=== PATIENT | female | born 1940 | race Caucasian/White ===

== ENCOUNTER 2020-08-15 07:34 | Outpatient (REF) | payer MEDICARE, SELFPAY ==
[2020-08-15 11:42] LABS: Alanine Aminotransferase 13 U/L (0-31); Albumin Level 4.3 g/dL (3.5-5.0); Alkaline Phosphatase 69 U/L (39-117); Anion Gap 12 (12-20); Aspartate Amino Transferase 17 U/L (5-31); Bilirubin Total 0.7 mg/dL (0.0-1.0); Blood Urea Nitrogen 18 mg/dL (9-16); Calcium 8.7 mg/dL (8.4-10.2); Carbon Dioxide 31 mmol/L (22-29); Chloride 104 mmol/L (96-108); Cholesterol 180 mg/dL; Estimated Glomerular Filt Rate > 60; Glucose Fasting 106 mg/dL (60-99); HDL Cholesterol 48 mg/dL; LDL Cholesterol Calculated 103 mg/dl; Potassium 4.5 mmol/l (3.3-5.1); Sodium 142 mmol/L (135-145); Total Protein 6.9 g/dL (6.5-8.0); Triglycerides 145 mg/dL
[2020-08-15 12:08] LABS: TSH reflex Free T4 1.26 mIU/mL (0.32-4.0)
== END 2020-08-15 07:35 | disposition home or self-care (01) ==
LOC: HO.HMGCLDS 07:34
PROVIDERS: PCP Nurse Practitioner Family; Visit Provider Nurse Practitioner Family
DX: Z78.0 Asymptomatic menopausal state (principal); I10 Essential (primary) hypertension
CPT/HCPCS: 80053; 80061; 84443

== ENCOUNTER 2020-08-27 12:46 | Outpatient (REF) | payer MEDICARE, SELFPAY ==
--- NOTE | 2020-08-27 12:49 | MM_ITS ---
EXAMINATION: BONE DENSITOMETRY CLINICAL INDICATION: Asymptomatic menopausal state. COMPARISON: None (current study represents initial baseline exam). TECHNIQUE: Using a [employer] DXA System (software version: 13.1) manufactured by [employer], dual-energy x-ray absorptiometry was performed of the lumbar spine and left hip. The images are of good technical quality. Summary results are attached. FINDINGS: AP SPINE L1-L4: BMD 1.434 g/cm2, Z-score 3.5, T-score 2.1, normal. LEFT FEMUR, NECK: BMD 0.753 g/cm2, Z-score -0.2, T-score -2.1, osteopenia. LEFT FEMUR, TOTAL: BMD 0.834 g/cm2, Z-score 0.3, T-score -1.4, osteopenia. IDENTIFIED RISK FACTORS: Menopause, left oophorectomy, hysterectomy. HISTORY OF FRACTURE: None listed. MEDICATIONS: None listed. MM/XR DEXA axial skeleton IMPRESSION: 1. DIAGNOSIS: Osteopenia based on the lowest T-score value of -2.1 in the femoral neck applying World Health Organization criteria. 2. 10-YEAR FRACTURE RISK PREDICTION, FRAX: Major osteoporotic fracture (clinical spine, forearm, hip or shoulder) 14.8%. Hip fracture 4.2%. 3. Treatment Recommendations: NOF guidelines recommend consideration for treatment in postmenopausal women and men age 50 and older presenting with the following: -A hip or vertebral (clinical or morphometric) fracture. -T-score less than or equal to -2.5 at the femoral neck or spine after appropriate evaluation to exclude secondary causes. -Low bone mass at the hip or spine and a 10-year fracture probability by FRAX of greater than or equal to 3% for hip fracture or greater than or equal to 20% for major osteoporotic fracture based on the [place] adapted WHO algorithm. 4. Other Recommendations: All treatment decisions require clinical judgment and consideration of individual patient factors, including patient preferences, comorbidities, previous drug use, risk factors not captured in the FRAX model (e.g. frailty, falls, vitamin D deficiency, increased bone turnover, interval significant decline in bone density) and possible under or overestimation of fracture risk by FRAX. Additional medical evaluation for secondary cause of low bone mineral density may be appropriate. FUTURE SCAN RECOMMENDATION: People with diagnosed cases of osteoporosis or at high risk for fracture should have regular bone mineral density tests. For patients eligible for Medicare, routine testing is allowed once every 2 years. The testing frequency can be increased to one year for patients who have rapidly progressing disease, those who are receiving or discontinuing medical therapy to restore bone mass, or have additional risk factors.
== END 2020-08-27 12:47 | disposition home or self-care (01) ==
LOC: HO.MAMMO 12:46
PROVIDERS: PCP Nurse Practitioner Family; Visit Provider Nurse Practitioner Family
DX: Z78.0 Asymptomatic menopausal state (principal); Z90.721 Acquired absence of ovaries, unilateral; Z90.710 Acquired absence of both cervix and uterus
CPT/HCPCS: 77080

== ENCOUNTER 2020-11-06 06:35 | Outpatient (REF) | payer MEDICARE, SELFPAY ==
[2020-11-06 11:42] LABS: Estimated Average Glucose 114 mg/dL; Hemoglobin A1c % 5.6 %
== END 2020-11-06 06:36 | disposition home or self-care (01) ==
LOC: HO.HMGCLDS 06:35
PROVIDERS: PCP Nurse Practitioner Family; Visit Provider Nurse Practitioner Family
DX: R73.01 Impaired fasting glucose (principal)
CPT/HCPCS: 36415; 83036

== ENCOUNTER 2021-07-04 15:21 | Outpatient (REF) | payer MEDICARE, SELFPAY ==
--- NOTE | ~2021-07-04 | MM_ITS ---
EXAMINATION: MM SCREENING DIGITAL BREAST TOMOSYNTHESIS, BILATERAL CLINICAL INFORMATION: Screening. Asymptomatic. The lifetime risk of breast cancer based on the Tyrer-Cuzick Model is under 2%. COMPARISON: Mammography: 06/01/2020, 05/23/2019, 05/13/2018 TECHNIQUE: Digital breast tomosynthesis is performed in both the craniocaudal and mediolateral oblique views along with computer-aided detection (CAD). Synthesized 2D images are generated from the tomosynthesis. FINDINGS: The breasts are heterogeneously dense, which may obscure small masses (ACR BI-RADS breast composition Category c). There are no significant masses, abnormal calcifications, or other abnormalities. Parenchymal pattern is similar to prior studies. No developing density. The axilla and skin contours are unremarkable. MM/MM tomosynthesis screening BI IMPRESSION: No mammographic evidence of malignancy. ASSESSMENT: BI-RADS 1: Negative RECOMMENDATION: Routine annual mammography screening. This patient's information was entered into a reminder system with a target due date for their next mammogram.
== END 2021-07-04 15:22 | disposition home or self-care (01) ==
LOC: HO.MAMMO 15:21
PROVIDERS: Visit Provider Nurse Practitioner Family
DX: Z12.31 Encounter for screening mammogram for malignant neoplasm of breast (principal)
CPT/HCPCS: 77063; 77067

== ENCOUNTER 2022-01-10 07:27 | Outpatient (REF) | payer MEDICARE, SELFPAY ==
[2022-01-10 11:14] LABS: Appearance Urine CLOUDY; Color Urine YELLOW; Glucose Urine UA NEG (NEG); Leukocyte Esterase Urine TRACE (NEG); Nitrite Urine NEG (NEG); PH 5.5 (5.0-8.0); Specific Gravity - Urine >= 1.030 (1.005-1.025); Urine Blood NEG (NEG); Urine Ketones NEG (NEG); Urine Protein NEG (NEG-TRACE)
[2022-01-10 11:32] LABS: Alanine Aminotransferase 11 U/L (0-31); Albumin Level 3.9 g/dL (3.5-5.0); Alkaline Phosphatase 72 U/L (39-117); Anion Gap 11 (12-20); Aspartate Amino Transferase 15 U/L (5-31); Bilirubin Total 0.7 mg/dL (0.0-1.0); Blood Urea Nitrogen 17 mg/dL (9-16); Calcium 8.9 mg/dL (8.4-10.2); Carbon Dioxide 28 mmol/L (22-29); Chloride 106 mmol/L (96-108); Cholesterol 152 mg/dL; Estimated Glomerular Filt Rate > 60; Glucose Fasting 112 mg/dL (60-99); HDL Cholesterol 45 mg/dL; LDL Cholesterol Calculated 92 mg/dl; Potassium 4.2 mmol/L (3.3-5.1); Sodium 141 mmol/L (135-145); Total Protein 6.7 g/dL (6.5-8.0); Triglycerides 76 mg/dL
[2022-01-10 11:42] LABS: TSH reflex Free T4 1.47 uIU/mL (0.32-4.0)
[2022-01-10 11:43] LABS: Amorphous Sediment Urine 4+ /LPF; Bacteria Urine TRACE /LPF; RBC Urine 0 /HPF (0); Renal Epithelial Cells Urine 1+ /LPF; Squamous Epithelial Cell Urine 1+ /LPF
== END 2022-01-10 07:28 | disposition home or self-care (01) ==
LOC: HO.HMGCLDS 07:27
PROVIDERS: PCP Nurse Practitioner Family; Visit Provider Nurse Practitioner Family
DX: I10 Essential (primary) hypertension (principal)
CPT/HCPCS: 36415; 80053; 80061; 81001; 84443

== ENCOUNTER 2022-07-08 13:39 | Outpatient (REF) | payer MEDICARE, SELFPAY ==
--- NOTE | ~2022-07-08 | MM_ITS ---
EXAMINATION: MM SCREENING DIGITAL BREAST TOMOSYNTHESIS, BILATERAL CLINICAL INFORMATION: Screening. Asymptomatic. The lifetime risk of breast cancer based on the Tyrer-Cuzick Model is under 2%%. COMPARISON: Mammography: 07/04/2021, 06/01/2020, 05/23/2019 TECHNIQUE: Digital breast tomosynthesis is performed in both the craniocaudal and mediolateral oblique views along with computer-aided detection (CAD). Synthesized 2D images are generated from the tomosynthesis. FINDINGS: The breasts are heterogeneously dense, which may obscure small masses (ACR BI-RADS breast composition Category c). Parenchymal pattern is similar to prior studies. Breast tissue composition borders on average fibroglandular. No developing density or architectural abnormality. There are no significant masses, abnormal calcifications, or other abnormalities. MM/MM tomosynthesis screening BI IMPRESSION: No mammographic evidence of malignancy. ASSESSMENT: BI-RADS 1: Negative RECOMMENDATION: Routine annual mammography screening. This patient's information was entered into a reminder system with a target due date for their next mammogram.
== END 2022-07-08 13:40 | disposition home or self-care (01) ==
LOC: HO.MAMMO 13:39
PROVIDERS: Visit Provider Nurse Practitioner Family
DX: Z12.31 Encounter for screening mammogram for malignant neoplasm of breast (principal)
CPT/HCPCS: 77063; 77067

== ENCOUNTER 2022-08-01 08:23 | Outpatient (REF) | payer MEDICARE, SELFPAY ==
[2022-08-01 11:09] LABS: MANUAL DIFF FLAG NO
[2022-08-01 11:15] LABS: Basophils Percent Auto 0.5 % (0-2); Eosinophils Absolute Auto 0.2 X10*3/uL (0.0-0.4); Eosinophils Percent Auto 3.2 % (0-4); Hematocrit 42.1 % (37.0-47.0); Hemoglobin 13.4 g/dl (12.0-16.0); Imm Gran Abs Auto 0.02 X10*3/uL (0.00-0.03); Imm Gran Pct Auto 0.3 % (0.0-0.4); Lymphocytes Absolute Auto 1.5 X10*3/uL (1.2-4.9); Lymphocytes Percent Auto 24.9 % (20-40); Mean Corpuscular HGB Conc 31.8 g/dl (31.0-35.0); Mean Corpuscular Hemoglobin 29.5 pg (27.0-33.0); Mean Corpuscular Volume 92.5 fL (80.0-98.0); Mean Platelet Volume 11.7 fL (9.4-12.3); Monocytes Absolute Auto 0.6 X10*3/uL (0.1-1.2); Monocytes Percent Auto 9.5 % (2-11); Neutrophils Absolute Auto 3.7 x10*3/uL (2.0-8.3); Neutrophils Percent Auto 61.6 % (45-73); Platelet Count 222 X10*3/uL (160-400); Red Blood Count 4.55 X10*6/uL (4.20-5.50); Red Cell Distribution Width 12.7 % (11.0-16.0)
[2022-08-01 11:27] LABS: Appearance Urine Cloudy; Color Urine Yellow; Glucose Urine UA Negative (Negative); Leukocyte Esterase Urine Large (3+) (Negative); Nitrite Urine Negative (Negative); UMIC TRIGGER UACC YES; Urine Blood Trace (Negative); Urine Ketones Negative (Negative); Urine Protein Negative (Neg-Trace)
[2022-08-01 11:33] LABS: Bacteria Urine 3+ (None Seen); Hyaline Casts Urine 0-2 /LPF (0-2); Squamous Epithelial Cell Urine >20 /HPF (0-2); UACC Culture Trigger YES; WBC Urine >50 /HPF (0-5)
[2022-08-01 11:38] LABS: Alanine Aminotransferase 13 U/L (0-31); Albumin Level 4.2 g/dL (3.5-5.0); Alkaline Phosphatase 78 U/L (39-117); Anion Gap 14 (12-20); Aspartate Amino Transferase 17 U/L (5-31); Bilirubin Total 0.8 mg/dL (0.0-1.0); Blood Urea Nitrogen 16 mg/dL (9-16); Calcium 8.8 mg/dL (8.4-10.2); Carbon Dioxide 28 mmol/L (22-29); Chloride 104 mmol/L (96-108); Cholesterol 164 mg/dL; Estimated Glomerular Filt Rate > 60; Glucose Fasting 105 mg/dL (60-99); HDL Cholesterol 44 mg/dL; LDL Cholesterol Calculated 97 mg/dl; Sodium 142 mmol/L (135-145); Total Protein 6.9 g/dL (6.5-8.0); Triglycerides 117 mg/dL
[2022-08-01 11:59] LABS: TSH reflex Free T4 1.54 uIU/mL (0.32-4.0)
== END 2022-08-01 08:24 | disposition home or self-care (01) ==
LOC: HO.HMGCLDS 08:23
PROVIDERS: PCP Nurse Practitioner Family; Visit Provider Nurse Practitioner Family
DX: I10 Essential (primary) hypertension (principal)
CPT/HCPCS: 36415; 80053; 80061; 81001; 84443; 85025; 87086

== ENCOUNTER → 2022-09-25 13:34 | Outpatient (REF) | payer OTHER, SELFPAY ==
--- NOTE | 2022-09-25 13:36 | CA_ITS ---
Transthoracic Echocardiogram Patient (Last, First, Middle): Kerri Webber F Gender: Female Date of : 1940 Age: 82 Procedure Date: 09/25/2022 Procedure Type: Transthoracic Echocardiogram Location: OP Height: 149.86 cm Weight: 78.02 kg BSA: 1.73 m2 Heart Rate: 62 bpm BP: 140 / 80 mmHg Strain Technician: SB Referring MD: Hussein Cruz [facility] Symptoms: R01.1 - Cardiac murmur, unspecified Study Quality: Fair ECG Rhythm: Sinus Conclusions: - Normal left ventricular size and systolic function. The visually estimated ejection fraction is between 55-60%. - Spectral Doppler is indicative of an impaired relaxation filling pattern. E/E prime ratio is between 8 and 15 consistent with indeterminate filling pressures. Global longitudinal strain decreased -16%. - Normal right ventricular cavity size and systolic function. - There is mild thickening of the aortic valve. There is no aortic valve stenosis. Findings Left Ventricle Normal left ventricular size and systolic function. The visually estimated ejection fraction is between 55-60%. There is no evidence of regional wall motion abnormalities. Abnormal diastolic function is noted. Spectral Doppler is indicative of an impaired relaxation filling pattern. E/E prime ratio is between 8 and 15 consistent with indeterminate filling pressures. There is mild septal asymmetric hypertrophy. Right Ventricle Normal right ventricular cavity size and systolic function. Atria The left atrium is normal in size. The right atrium is normal in size. Aortic Valve There is a normal trileaflet aortic valve. There is mild calcification of the aortic valve. There is mild thickening of the aortic valve. There is no aortic valve stenosis. There is no aortic valve regurgitation. Mitral Valve Normal mitral valve structure and function. There is trace mitral valve regurgitation. There is no mitral valve stenosis. Pulmonic Valve Normal pulmonic valve structure and function. There is trace pulmonic valve regurgitation. Tricuspid Valve Normal tricuspid valve structure and function. There is trace tricuspid valve regurgitation. Normal right atrial pressure. There is no evidence of pulmonary hypertension. Great Vessels All visible segments of the aorta are normal in size. The visualized portions of the pulmonary artery and branches are normal. Venous The inferior vena cava is normal in size and collapses greater than 50% with inspiration. Pericardium/Pleural There is no evidence of pericardial effusion. Prior Study Comparison No prior study available for comparison. Measurements 2D Linear Measurements IVSd: 1.16 0.6-0.9/0.6-1.0 cm LVIDd: 4.50 3.9-5.3/4.2-5.9 cm LVIDd Index: 2.60 2.4-3.2/2.2-3.1 cm/m2 LVIDs: 2.95 2.0-3.6 cm LVPWd: 0.53 0.7-1.1 cm LA Diam: 3.70 2.7-3.8/3.0-4.0 cm LAIDs Index: 2.14 1.5-2.3 cm/m2 LV Mass: 151.42 67-162/88-224 g LV Mass Index: 87.52 43-95/49-115 g/m2 LVOT Diam: 2.10 3.0+(-)1.3 cm 2D Systolic Function EF Teich: 63.00 >55% Mitral Valve MV Pk E: 0.69 MV PK A: 0.82 MV Decel Time: 238.00 E/A: 0.80 E'Lateral: 6.64 E'Medial: 5.00 E/E' Med: 13.80 E/E' Lat: 10.40 PHT: 70.00 MVA PHT: 3.14 Decel Johnson: 2.89 Aortic Valve AoV Pk Miguelangel: 1.28 AoV Pk Grad: 7.00 FIIF: 2.56 LVOT LVOT Pk Miguelangel: 0.95 LVOT Mn Miguelangel: 0.63 LVOT VTI: 0.22 LVOT Pk Grad: 4.00 LVOT Mn Grad: 2.00 LVOT Diam: 2.10 LVOT Area: 3.46 Diastolic Function MV Pk E: 0.69 MV Pk A: 0.82 E/A: 0.80 E'Medial: 5.00 E/E' Med: 13.80 E' Laterial: 6.64 E/E' Lat: 10.40 Right Ventricle TAPSE (mm): 18.40 TVS' Miguelangel: 10.30 Tricuspid Valve TR Pk Miguelangel: 2.32 TR Pk Grad: 22.00 RA Press: 3.00 RVSP: 25.00 Great Vessels Aorta Sinus of Valsalva: 2.80 2.0-3.5 cm Ao Asc: 3.10 2.1-3.4 cm Pulmonary Veins Pulm Vein S/D 1.30 Pulmonary Valve PV Pk Miguelangel: 0.88 Peak PV Grad: 3.00 Updated in Other Vendor System with Status of Final Donnell Correa MD electronically signed on 09/27/2022 12:17:10 PM with status of Final
== END ==
LOC: HO.CARD 13:34
PROVIDERS: PCP Nurse Practitioner Family; Visit Provider Nurse Practitioner Family
DX: R01.1 Cardiac murmur, unspecified (principal)
CPT/HCPCS: 93306

== ENCOUNTER 2023-07-14 13:51 | Outpatient (REF) | payer OTHER, SELFPAY ==
--- NOTE | ~2023-07-14 | MM_ITS ---
EXAMINATION: MM SCREENING DIGITAL BREAST TOMOSYNTHESIS, BILATERAL CLINICAL INFORMATION: Screening. Asymptomatic. COMPARISON: Mammography: This study is compared with prior exams dating back to 2017. TECHNIQUE: Digital breast tomosynthesis is performed in both the craniocaudal and mediolateral oblique views along with computer-aided detection (CAD). Synthesized 2D images are generated from the tomosynthesis. FINDINGS: The breasts are heterogeneously dense, which may obscure small masses (ACR BI-RADS breast composition Category c). There are no significant masses, abnormal calcifications, or other abnormalities. There are scattered, bilateral, benign calcifications. MM/MM tomosynthesis screening BI IMPRESSION: No mammographic evidence of malignancy. ASSESSMENT: BI-RADS BI-RADS 2 - Benign Findings RECOMMENDATION: Routine annual mammography screening. 1 year F/U This examination should not preclude the clinical evaluation of a suspicious palpable abnormality. This patient's information was entered into a reminder system with a target due date for their next mammogram.
== END 2023-07-14 13:52 | disposition home or self-care (01) ==
LOC: HO.MAMMO 13:51
PROVIDERS: Visit Provider Nurse Practitioner Family
DX: Z12.31 Encounter for screening mammogram for malignant neoplasm of breast (principal)
CPT/HCPCS: 77063; 77067

== ENCOUNTER → 2023-07-14 14:00 | Outpatient (BNV) | payer OTHER, SELFPAY | PROVIDERS: Visit Provider Radiology Diagnostic Radiology | DX: Z12.31 Encounter for screening mammogram for malignant neoplasm of breast (principal) | CPT/HCPCS: 77063; 77067 ==

== ENCOUNTER 2023-08-21 08:08 | Outpatient (REF) | payer OTHER, SELFPAY ==
[2023-08-21 10:49] LABS: MANUAL DIFF FLAG NO
[2023-08-21 11:07] LABS: Basophils Percent Auto 0.7 % (0-2); Eosinophils Absolute Auto 0.2 X10*3/uL (0.0-0.4); Eosinophils Percent Auto 3.3 % (0-4); Hematocrit 42.1 % (37.0-47.0); Hemoglobin 13.6 g/dl (12.0-16.0); Imm Gran Abs Auto 0.01 X10*3/uL (0.00-0.03); Imm Gran Pct Auto 0.2 % (0.0-0.4); Lymphocytes Absolute Auto 1.6 X10*3/uL (1.2-4.9); Lymphocytes Percent Auto 29.7 % (20-40); Mean Corpuscular HGB Conc 32.3 g/dl (31.0-35.0); Mean Corpuscular Hemoglobin 29.4 pg (27.0-33.0); Mean Corpuscular Volume 91.1 fL (80.0-98.0); Mean Platelet Volume 11.8 fL (9.4-12.3); Monocytes Absolute Auto 0.6 X10*3/uL (0.1-1.2); Monocytes Percent Auto 11.1 % (2-11); Platelet Count 227 X10*3/uL (160-400); Red Blood Count 4.62 X10*6/uL (4.20-5.50); Red Cell Distribution Width 12.6 % (11.0-16.0); White Blood Count 5.5 X10*3/uL (4.8-10.8)
[2023-08-21 11:20] LABS: Appearance Urine Clear; Color Urine Yellow; Glucose Urine UA Negative (Negative); Leukocyte Esterase Urine Moderate (2+) (Negative); Nitrite Urine Negative (Negative); PH 5.5 (5.0-9.0); UMIC TRIGGER UACC YES; Urine Blood Negative (Negative); Urine Ketones Negative (Negative); Urine Protein Negative (Neg-Trace)
[2023-08-21 11:22] LABS: Alanine Aminotransferase 12 U/L (0-31); Albumin Level 4.1 g/dL (3.5-5.0); Alkaline Phosphatase 62 U/L (39-117); Anion Gap 13 (12-20); Aspartate Amino Transferase 18 U/L (5-31); Bilirubin Total 0.9 mg/dL (0.0-1.0); Blood Urea Nitrogen 18 mg/dL (9-16); Calcium 8.8 mg/dL (8.4-10.2); Carbon Dioxide 27 mmol/L (22-29); Chloride 105 mmol/L (96-108); Cholesterol 158 mg/dL (<200); Estimated Glomerular Filt Rate > 60; Glucose Fasting 100 mg/dL (60-99); HDL Cholesterol 45 mg/dL (>40); LDL Cholesterol Calculated 92 mg/dL (<100); Potassium 3.8 mmol/L (3.3-5.1); Sodium 141 mmol/L (135-145); Triglycerides 106 mg/dL (<150)
[2023-08-21 11:25] LABS: Bacteria Urine Trace (None Seen); Hyaline Casts Urine 0-2 /LPF (0-2); RBC Urine 0-2 /HPF (0-2); UACC Culture Trigger YES; WBC Urine 21-50 /HPF (0-5)
[2023-08-21 11:42] LABS: TSH reflex Free T4 1.69 uIU/mL (0.32-4.0)
== END 2023-08-21 08:09 | disposition home or self-care (01) ==
LOC: HO.HMGCLDS 08:08
PROVIDERS: PCP Nurse Practitioner Family; Visit Provider Nurse Practitioner Family
DX: I10 Essential (primary) hypertension (principal); M85.80 Other specified disorders of bone density and structure, unspecified site; R82.90 Unspecified abnormal findings in urine
CPT/HCPCS: 36415; 80053; 80061; 81001; 82306; 84443; 85025; 87086

== ENCOUNTER 2023-09-09 13:31 | Outpatient (AMB) | payer OTHER, SELFPAY ==
--- NOTE | 2023-09-09 13:46 | MHC.PC.OV ---
Vital Signs 09/09/23 13:48 Height 5 ft 2 in Weight 164 lb BMI 30.0 BP 120/72 Blood Pressure Location Rt brachial Position Sitting Pulse 64 Pulse Source Pulse Oximeter Pulse Oximetry (%) 97 Oxygen Delivery Method Room Air Intake Visit Reasons: Annual PE Intake Note: Patient here for physical exam. No new issues or concerns. Allergies No Known Allergies Allergy (Verified 03/09/23 15:24) Tobacco use date assessed: 03/09/23 Fall risk assessment: No Falls in past year Last assessed Fall Risk: 09/09/23 Dental Screening Dental Screen Date: 09/09/23 Did you have a dental visit in the last 12 months?: Yes Did you have a dental problem in the last 6 months where you did not have access to dental care?: No Was dental information given to patient?: Patient has dentist HPI Annual PE HPI Details pt is here for a PE. Mammo is up to date. repeating urine today (please see previous sample). Pt denies any burning with urination, frequency, urgency, flank pains, or hematuria. PFSH Medical History Osteopenia Hypothyroid HTN (hypertension) GERD (gastroesophageal reflux disease) Surgical History History of partial hysterectomy History of knee replacement procedure of right knee History of colonoscopy Family History Father No problems noted. Mother No problems noted. Maternal Grandfather No problems noted. Maternal Grandmother No problems noted. Paternal Grandfather No problems noted. Paternal Grandmother No problems noted. Daughter No problems noted. Daughter No problems noted. Social History Housing: House Alcohol intake: never Patient Tobacco Use Status: Never used Tobacco e-Cigarette/Vaping Use: Never Used Second Hand Smoke Exposure: No service: No Current occupational status: retired and other (she works 5 hrs a day ) Current occupation: [employer] Cognitive needs: No Hearing needs: No Vision needs: No Questionnaire PHQ-9 Over the last 2 weeks, how often have you been bothered by any of the following problems? 1. Little interest or pleasure in doing things: not at all 2. Feeling down, depressed, or hopeless: not at all 3. Trouble falling or staying asleep, or sleeping too much: not at all 4. Feeling tired or having little energy: not at all 5. Poor appetite or overeating: not at all 6. Feeling bad about yourself - or that you are a failure or have let yourself or your family down: not at all 7. Trouble concentrating on things, such as reading the newspaper or watching television: not at all 8. Moving or speaking so slowly that other people could have noticed. Or the opposite - being so fidgety or restless that you have been moving around a lot more than usual: not at all 9. Thoughts that you would be better off or of hurting yourself in some way: not at all Total score: 0 Depression Screening Interpretation: Negative Depression Screening Done: Yes [id number] - PHQ-9 Billing: Yes Source: Developed by Drs. Billy Nguyen, Leticia Duke, Jamal Houston and colleagues, with an educational rosette from [employer]. Thrive Questionnaire Date Thrive assessed: 09/09/23 I am a: Patient What is your living situation today?: I have a steady place to live Within the past 12 months, did the food you bought not last and you didn't have the money to get more?: Never true Within the past 12 months, did you worry whether your food would run out before you got money to buy more?: Never true Do you have trouble paying for medicines?: No Do you have trouble getting transportation to medical appointments?: No Do you have trouble paying your heating and electricity bill?: No Do you have trouble taking care of your child, family member or friend?: No Do you have trouble with day-to-day activities such as bathing, preparing meals, shopping, managing finances, etc.?: No Are you currently unemployed and looking for a job?: No Are you interested in more education?: No Currently or been in a relationship where the following occur: no concerns reported AUDIT C Alcohol Use Questionnaire (AUDIT-C) 1. How often do you have a drink containing alcohol?: Monthly or less 2. How many drinks containing alcohol do you have on a typical day when you are drinking?: 1 or 2 3. How often do you have six or more drinks on one occasion?: Never Total Score: 1 Score Reviewed/Action Taken: No IRLANDA-7 AMB Questionnaire IRLANDA-7 Date IRLANDA - 7 assessed: 09/09/23 Feeling nervous, anxious, or on edge: 0 = Not at all Not being able to stop or control worryin = Not at all Worrying too much about different things: 0 = Not at all Trouble relaxin = Not at all Being so restless that it is hard to sit still: 0 = Not at all Becoming easily annoyed or irritable: 0 = Not at all Feeling afraid as if something awful might happen: 0 = Not at all Total IRLANDA-7 score (0-4 normal; 5-9 mild; 10-14 moderate; 15-21 severe): 0 Source: Developed by Drs. Billy Nguyen, Leticia Duke, Jamal Houston and colleagues, with an educational rosette from [employer]. IRLANDA-7 Assessment Billing IRLANDA-7 Assessment Tool: IRLANDA-7 Assessment 28654 Review of Systems Const Denies chills and Denies fever(s) Eyes Denies blurry vision ENT Denies vertigo, Denies dizziness and Denies sore throat Card Denies chest pain at rest, Denies chest pain with activity, Denies diaphoresis, Denies dyspnea and Denies dyspnea on exertion Resp Denies cough, Denies dyspnea, Denies dyspnea on exertion and Denies wheezing GI Denies abdominal pain, Denies melena, Denies hematochezia, Denies constipation, Denies diarrhea and Denies loose stools Denies hematuria Musc Denies numbness and Denies tingling Skin/Breast Denies lesions Neuro Denies vertigo, Denies dizziness, Denies numbness and Denies tingling Psych Denies anxiety, Denies depression, Denies homicidal ideation, Denies suicidal ideation and Denies other (substance abuse) Aller/Immun Denies wheezing Physical exam (Primary Care) Vital Signs: Last Vital Signs Pulse 64 09/09/23 13:48 BP 120/72 09/09/23 13:48 Pulse Ox 97 09/09/23 13:48 Oxygen Delivery Method Room Air 09/09/23 13:48 BMI result Body Mass Index 30.0 Tobacco/Smoking Status: Tobacco use Status Tobacco use date assessed 03/09/23 09/09/23 13:55 Patient Tobacco Use Status Never used Tobacco 09/09/23 13:55 e-Cigarette/Vaping Use Never Used 09/09/23 13:55 PHQ-9: PHQ-9 Score PHQ-9: Total score 0 09/09/23 14:52 Depression Screening Interpretation: Negative Thrive Assessment: Date of Thrive Assessment Date Thrive assessed 09/09/23 09/09/23 14:52 Currently or been in a relationship where the following occur: no concerns reported Const General: cooperative Nutritional Appearance: well nourished Orientation/consciousness: patient oriented x3 HENMT Head: Yes normal to inspection, Yes normocephalic and Yes atraumatic Ears: TM normal on the right and TM normal on the left Eyes General: appearance normal, both eyes and all related structures Alignment and Position: alignment normal and position normal Neck Neck: Yes normal visual inspection and Yes no lymphadenopathy Resp Effort & Inspection: normal respiratory effort Auscultation: clear to auscultation bilaterally Cardio Rate: regular rate Rhythm: regular rhythm Heart sounds: S1 normal heart sound present, S2 normal heart sound present and no murmurs GI Palpation (GI): Soft to palpation and nontender Auscultation: normal bowel sounds Skin Rashes: no rashes Neuro General: patient oriented x3, moves all extremities, no focal motor deficits and deep tendon reflexes 2+ bilaterally Romberg Test: Negative Extrem Right lower extremity: no edema Left lower extremity: no edema Psych Affect: normal affect Attitude: cooperative Thought process: Normal thought process present Results AMB Urinalysis, Automated UA Leukoctes 15 Ninoska/uL Last Edit by ALICIA Barton on 09/09/23 15:13 UA Nitrite Negative Last Edit by ALICIA Barton on 09/09/23 15:13 UA Urobilinogen 0.2 mg/dL Last Edit by ALICIA Barton on 09/09/23 15:13 UA Protein 0 mg/dL Last Edit by ALICIA Barton on 09/09/23 15:13 UA pH 6.0 Last Edit by ALICIA Barton on 09/09/23 15:13 UA Blood 0 Marcos/uL Last Edit by ALICIA Barton on 09/09/23 15:13 UA Specific [place] 1.030 Last Edit by ALICIA Barton on 09/09/23 15:13 UA Ketone Negative Last Edit by ALICIA Barton on 09/09/23 15:13 UA Bilirubin 0 mg/dL Last Edit by ALICIA Barton on 09/09/23 15:13 UA Glucose 0 mg/dL Last Edit by ALICIA Barton on 09/09/23 15:13 Results Reviewed Results Reviewed: Laboratory Last Values Urine pH (Auto) 6.0 09/09/23 14:52 Specific [place] (Auto) 1.030 09/09/23 14:52 Urine Protein (Auto) 0 mg/dL 09/09/23 14:52 Glucose (UA)(Auto) 0 mg/dL 09/09/23 14:52 Urine Ketones (Auto) Negative 09/09/23 14:52 Urine Blood (Auto) 0 Marcos/uL 09/09/23 14:52 Urine Nitrite (Auto) Negative 09/09/23 14:52 Urine Bilirubin (Auto) 0 mg/dL 09/09/23 14:52 Urine Urobilinogen (Auto) 0.2 mg/dL 09/09/23 14:52 Leukocyte Esterase (Auto) 15 Ninoska/uL 09/09/23 14:52 Assessment and Plan Assessment & Plan (1) Encounter for routine adult physical exam with abnormal findings: Code(s): Z00.01 - Encounter for general adult medical examination with abnormal findings (2) Leukocytes in urine: Code(s): R82.998 - Other abnormal findings in urine Orders: Orders UA CC w/rflx Micro + Cult Today N39.0 - Urinary tract infection, site not specified AMB Urinalysis Automated Today Z13.9 - Encounter for screening, unspecified Coding Level of Care Code Est Pt Prev Care >65y(00409) Diagnoses Encounter for routine adult physical exam with abnormal findings Z00.01 Leukocytes in urine R82.998 Additional Codes IRLANDA-7 Assessment Billing - IRLANDA-7 Assessment Tool: IRLANDA-7 Assessment 42883 ([id number])
[2023-09-09 13:48] VITALS: BP 120/72; PULSE 64; O2SAT 97
== END 2023-09-09 14:40 | disposition home or self-care (01) ==
PROVIDERS: PCP Nurse Practitioner Family; Visit Provider Nurse Practitioner Family
DX: Z00.01 Encounter for general adult medical examination with abnormal findings (principal); R82.998 Other abnormal findings in urine
CPT/HCPCS: 81003; 99397

== ENCOUNTER 2023-09-09 14:52 | Outpatient (REF) | payer OTHER, SELFPAY ==
[2023-09-10 12:22] LABS: Appearance Urine Clear; Color Urine Yellow; Glucose Urine UA Negative (Negative); Leukocyte Esterase Urine Small (1+) (Negative); Nitrite Urine Negative (Negative); PH 5.5 (5.0-9.0); UMIC TRIGGER UACC YES; Urine Blood Negative (Negative); Urine Ketones Negative (Negative); Urine Protein Negative (Neg-Trace)
[2023-09-10 12:32] LABS: Bacteria Urine None Seen (None Seen); Calcium Oxalate Crystals Urine Present; Hyaline Casts Urine 0-2 /LPF (0-2); RBC Urine 0-2 /HPF (0-2); UACC Culture Trigger YES
== END 2023-09-09 14:53 | disposition home or self-care (01) ==
LOC: HO.LAB 14:52
PROVIDERS: Visit Provider Nurse Practitioner Family
DX: N39.0 Urinary tract infection, site not specified (principal)
CPT/HCPCS: 81001; 87086

== ENCOUNTER 2024-02-11 08:41 | Outpatient (AMB) | payer OTHER, SELFPAY ==
[2024-02-11 08:42] VITALS: BP 120/80; PULSE 75; TEMP 36.6; O2SAT 96; BMI 29.3
--- NOTE | 2024-02-11 08:42 | AM.OFFWIN_ITS ---
Intake Vital Signs 3 02/11/24 08:42 Height 5 ft 2 in Weight 160 lb BMI 29.3 BP 120/80 Blood Pressure Location Lt brachial Position Sitting Pulse 75 Pulse Source Pulse Oximeter Temp 97.9 F Temp Source Temporal Artery Scan Pulse Oximetry (%) 96 Oxygen Delivery Method Room Air Intake Visit Reasons: Est/ fell on left knee (lobby) Intake Note: pt is here today for fell on lft knee started yesterday Patient Tobacco Use Status: Never used Tobacco Allergies No Known Allergies Allergy (Verified 02/11/24 08:47) Medication List - Last Reconciled 02/11/24 by Gerardo Medeiros MD ascorbate calcium (vitamin C) 500 mg PO DAILY atenolol 50 mg PO DAILY 90 days celecoxib 200 mg PO DAILY cholecalciferol (vitamin D3) 25 mcg PO DAILY flu vacc [id number](65yr up)-PF IM levothyroxine 75 mcg PO DAILY 90 days omeprazole 20 mg PO DAILY 90 days simvastatin 40 mg PO BEDTIME 90 days vitamin B complex ER (Complex B-100 tablet,extended release) 1 tab PO DAILY Do you need a note to return to daycare/school/sports/work: No HPI Est/ fell on left knee (lobby) 2 HPI0 Details Patient is 83-year-old female who fell on her left knee yesterday Now having difficulty walking Patient have a history of right knee replacement This morning she noticed ecchymosis on her left breast as well On examination patient has developed ecchymosis left breast which is slightly sore Left knee is tender over patella with limited range of motion There is no swelling compared to right knee There is superficial ecchymosis over the patella Patient took a leave this morning Advised patient not to take a leave and Celebrex together, she may take Tylenol Q 8 as needed for pain From tomorrow she may take 1 Celebrex but no a leave Motrin or ibuprofen with it. We will have x-ray done today We will also Goldy wrap her knee Further management after the x-ray report Left breast ecchymosis will resolve gradually. 10:15 am.: X-ray report reviewed, there is no fracture of patella, however patient has severe osteoarthritis I have placed a referral to [facility] for evaluation Patient was notified of x-ray report and plan. [facility] Medical History Osteopenia Hypothyroid HTN (hypertension) GERD (gastroesophageal reflux disease) Surgical History History of partial hysterectomy History of knee replacement procedure of right knee History of colonoscopy Family History Father No problems noted. Mother No problems noted. Maternal Grandfather No problems noted. Maternal Grandmother No problems noted. Paternal Grandfather No problems noted. Paternal Grandmother No problems noted. Daughter No problems noted. Daughter No problems noted. 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 Ecchymosis Resp Effort & Inspection: normal respiratory effort and able to speak in complete sentences Neuro General: patient oriented x3 Extrem Knee images: 2 1. Tender with small patch of ecchymosis, limited range of motion because of discomfort, no calf tenderness Psych Mental Status: mental status grossly normal Assessment & Plan Assessment & Plan (1) Fall: Code(s): W19.XXXA - Unspecified fall, initial encounter Qualifiers: Encounter type: initial encounter Qualified Code(s): W19.XXXA - Unspecified fall, initial encounter (2) Left knee injury: Code(s): S89.92XA - Unspecified injury of left lower leg, initial encounter Qualifiers: Encounter type: initial encounter Qualified Code(s): S89.92XA - Unspecified injury of left lower leg, initial encounter (3) Pain of left patella: Code(s): M25.562 - Pain in left knee (4) Traumatic ecchymosis of left female breast: Code(s): S20.02XA - Contusion of left breast, initial encounter Qualifiers: Encounter type: initial encounter Qualified Code(s): S20.02XA - Contusion of left breast, initial encounter (5) Difficulty walking: Code(s): R26.2 - Difficulty in walking, not elsewhere classified (6) Osteoarthritis of left knee: Code(s): M17.12 - Unilateral primary osteoarthritis, left knee Qualifiers: Osteoarthritis type: primary Qualified Code(s): M17.12 - Unilateral primary osteoarthritis, left knee Plan Patient is 83-year-old female who fell on her left knee yesterday Now having difficulty walking Patient have a history of right knee replacement This morning she noticed ecchymosis on her left breast as well On examination patient has developed ecchymosis left breast which is slightly sore Left knee is tender over patella with limited range of motion There is no swelling compared to right knee There is superficial ecchymosis over the patella Patient took a leave this morning Advised patient not to take a leave and Celebrex together, she may take Tylenol Q 8 as needed for pain From tomorrow she may take 1 Celebrex but no a leave Motrin or ibuprofen with it. We will have x-ray done today We will also Goldy wrap her knee Further management after the x-ray report Left breast ecchymosis will resolve gradually. 10:15 am.: X-ray report reviewed, there is no fracture of patella, however patient has severe osteoarthritis I have placed a referral to [facility] for evaluation Patient was notified of x-ray report and plan. 45 minutes spent in care of this patient including evaluation, [id number] discussion Reviewing x-ray reports, referrals, charting. Orders: Referrals 2 Orthopedics Referral M17.12 - Unilateral primary osteoarthritis, left knee, M25.562 - Pain in left knee, S89.92XA - Unspecified injury of left lower leg, initial encounter Coding Level of Care Code Est Pt Level 5 (28589) Diagnoses Fall, initial encounter W19.XXXA Encounter type: initial encounter Injury of left knee, initial encounter S89.92XA Encounter type: initial encounter Pain of left patella M25.562 Traumatic ecchymosis of left female breast, initial encounter S20.02XA Encounter type: initial encounter Difficulty walking R26.2 Primary osteoarthritis of left knee M17.12 Osteoarthritis type: primary
== END 2024-02-11 12:40 | disposition home or self-care (01) ==
PROVIDERS: PCP Nurse Practitioner Family; Visit Provider Internal Medicine
DX: S89.92XA Unspecified injury of left lower leg, initial encounter (principal); S20.02XA Contusion of left breast, initial encounter; W19.XXXA Unspecified fall, initial encounter; R26.2 Difficulty in walking, not elsewhere classified; M25.562 Pain in left knee; M17.12 Unilateral primary osteoarthritis, left knee
CPT/HCPCS: 99215

== ENCOUNTER 2024-02-11 08:58 | Outpatient (REF) | payer OTHER, SELFPAY ==
--- NOTE | ~2024-02-11 | XR_ITS ---
EXAMINATION: XR KNEE, LEFT CLINICAL INFORMATION: Left lower leg injury. COMPARISON: None available. TECHNIQUE: Four views of the left knee. FINDINGS: Decreased bone mineralization. Severe medial and lateral tibiofemoral cartilage space loss with subchondral sclerosis and marginal osteophytes. Severe patellofemoral cartilage space loss with retropatellar osteophytes. Small suprapatellar joint effusion. Loose bodies in the posterior joint space. XR/XR knee LT 4V IMPRESSION: Severe osteoarthritis of the left knee. Small suprapatellar joint effusion.
== END 2024-02-11 08:59 | disposition home or self-care (01) ==
LOC: HO.HMGCX 08:58
PROVIDERS: PCP Nurse Practitioner Family; Visit Provider Internal Medicine
DX: S89.92XD Unspecified injury of left lower leg, subsequent encounter (principal)
CPT/HCPCS: 73564

== ENCOUNTER 2024-02-29 13:26 | Outpatient (AMB) | payer OTHER, SELFPAY ==
--- NOTE | 2024-02-29 13:28 | MHC.PC.OV ---
Vital Signs 02/29/24 13:32 Height 5 ft 2 in Weight 158 lb BMI 28.9 BP 124/64 Blood Pressure Location Rt brachial Position Sitting Pulse 63 Pulse Source Pulse Oximeter Pulse Oximetry (%) 98 Oxygen Delivery Method Room Air Intake Visit Reasons: 6 Month follow up Intake Note: Patient here to discuss possible infection on right ear lobe. Allergies No Known Allergies Allergy (Verified 02/29/24 13:33) Tobacco use date assessed: 02/29/24 Fall risk assessment: No Falls in past year Last assessed Fall Risk: 02/29/24 Dental Screening Dental Screen Date: 02/29/24 Did you have a dental visit in the last 12 months?: Yes Did you have a dental problem in the last 6 months where you did not have access to dental care?: No Was dental information given to patient?: Patient has dentist (seen in november 2023) HPI 6 Month follow up HPI Details HTN: Blood pressure is stable, managed with atenolol 50mg. Will order labs. Denies chest pain, shortness of breath, headache, dizziness, and blurred vision. Pt reports putting a new earring in her right earlobe 2 days ago. She reports that the earlobe is slightly swollen and erythematous, though it is improving. Will continue to monitor. [facility] Medical History Osteopenia Hypothyroid HTN (hypertension) GERD (gastroesophageal reflux disease) Surgical History History of partial hysterectomy History of knee replacement procedure of right knee History of colonoscopy Family History Father No problems noted. Mother No problems noted. Maternal Grandfather No problems noted. Maternal Grandmother No problems noted. Paternal Grandfather No problems noted. Paternal Grandmother No problems noted. Daughter No problems noted. Daughter No problems noted. Social History Housing: House Alcohol intake: never Patient Tobacco Use Status: Never used Tobacco e-Cigarette/Vaping Use: Never Used Second Hand Smoke Exposure: No service: No Current occupational status: retired and other (she works 5 hrs a day ) Current occupation: [employer]– [place] Cognitive needs: No Hearing needs: No Vision needs: No Questionnaire PHQ-9 Over the last 2 weeks, how often have you been bothered by any of the following problems? 1. Little interest or pleasure in doing things: not at all 2. Feeling down, depressed, or hopeless: not at all 3. Trouble falling or staying asleep, or sleeping too much: not at all 4. Feeling tired or having little energy: not at all 5. Poor appetite or overeating: not at all 6. Feeling bad about yourself - or that you are a failure or have let yourself or your family down: not at all 7. Trouble concentrating on things, such as reading the newspaper or watching television: not at all 8. Moving or speaking so slowly that other people could have noticed. Or the opposite - being so fidgety or restless that you have been moving around a lot more than usual: not at all 9. Thoughts that you would be better off or of hurting yourself in some way: not at all Total score: 0 Depression Screening Interpretation: Negative Depression Screening Done: Yes 64907 - PHQ-9 Billing: Yes Source: Developed by Drs. Billy Nguyen, Leticia Duke, Jamal Houston and colleagues, with an educational rosette from [employer]. Thrive Questionnaire Date Thrive assessed: 02/29/24 I am a: Patient What is your living situation today?: I have a steady place to live Within the past 12 months, did the food you bought not last and you didn't have the money to get more?: Never true Within the past 12 months, did you worry whether your food would run out before you got money to buy more?: Never true Do you have trouble paying for medicines?: No Do you have trouble getting transportation to medical appointments?: No Do you have trouble paying your heating and electricity bill?: No Do you have trouble taking care of your child, family member or friend?: No Do you have trouble with day-to-day activities such as bathing, preparing meals, shopping, managing finances, etc.?: No Are you currently unemployed and looking for a job?: No Are you interested in more education?: No Please select the resources that you would like help with: None THRIVE Score: 0 AUDIT C Alcohol Use Questionnaire (AUDIT-C) 1. How often do you have a drink containing alcohol?: Never 3. How often do you have six or more drinks on one occasion?: Never Total Score: 0 Score Reviewed/Action Taken: No IRLANDA-7 AMB Questionnaire IRLANDA-7 Date IRLANDA - 7 assessed: 02/29/24 Feeling nervous, anxious, or on edge: 0 = Not at all Not being able to stop or control worryin = Not at all Worrying too much about different things: 0 = Not at all Trouble relaxin = Not at all Being so restless that it is hard to sit still: 0 = Not at all Becoming easily annoyed or irritable: 0 = Not at all Feeling afraid as if something awful might happen: 0 = Not at all Total IRLANDA-7 score (0-4 normal; 5-9 mild; 10-14 moderate; 15-21 severe): 0 Source: Developed by Drs. Billy Nguyen, Leticia Duke, Jamal Houston and colleagues, with an educational rosette from [employer]. IRLANDA-7 Assessment Billing IRLANDA-7 Assessment Tool: IRLANDA-7 Assessment 15896 Review of Systems Const Reports as per HPI Physical exam (Primary Care) Vital Signs: Last Vital Signs Pulse 63 02/29/24 13:32 BP 124/64 02/29/24 13:32 Pulse Ox 98 02/29/24 13:32 Oxygen Delivery Method Room Air 02/29/24 13:32 BMI result Body Mass Index 28.9 Tobacco/Smoking Status: Tobacco use Status Tobacco use date assessed 02/29/24 02/29/24 13:38 Patient Tobacco Use Status Never used Tobacco 02/29/24 13:30 e-Cigarette/Vaping Use Never Used 02/29/24 13:30 PHQ-9: PHQ-9 Score PHQ-9: Total score 0 02/29/24 14:13 Depression Screening Interpretation: Negative Thrive Assessment: Date of Thrive Assessment Date Thrive assessed 02/29/24 02/29/24 14:13 Const General: cooperative Orientation/consciousness: patient oriented x3 HENMT Other: right earlobe slightly swollen, no tenderness with palpation, no warmth Resp Effort & Inspection: normal respiratory effort Auscultation: clear to auscultation bilaterally Cardio Rate: regular rate Rhythm: regular rhythm Heart sounds: S1 normal heart sound present and S2 normal heart sound present Neuro General: patient oriented x3 Psych Appearance: grossly normal Mental Status: mental status grossly normal Speech and movement: Normal speech and movement present Affect: normal affect Attitude: cooperative Thought process: Normal thought process present Thought content: Normal thought content present Insight: Good insight present (Psych) Judgement: Good judgement present (Psych) Assessment and Plan Assessment & Plan (1) HTN (hypertension): Code(s): I10 - Essential (primary) hypertension Plan: Stable, labs ordered (2) Post-menopausal: Code(s): Z78.0 - Asymptomatic menopausal state Plan: Vitamin D ordered (3) Infection of ear lobe: Code(s): H60.399 - Other infective otitis externa, unspecified ear Plan: getting less erythematous, no active signs of infection otherwise. Plan The patient agreed to the use of a medical director of hospice for this encounter. Scribed for CINDY Kurtz-LUCAS by Blanca Cruz medical director of hospice, on 02/29/2024 at 13:45 EST. Orders: Orders Complete Blood Count Auto Diff Today I10 - Essential (primary) hypertension Comprehensive [place]. Panel Fast Today I10 - Essential (primary) hypertension UA CC w/rflx Micro + Cult Today I10 - Essential (primary) hypertension Lipid Panel Today I10 - Essential (primary) hypertension Vitamin D 25-OH Total Today Z78.0 - Asymptomatic menopausal state TSH reflex Free T4 Today I10 - Essential (primary) hypertension Coding Level of Care Code Est Pt Level 3 (35246) Diagnoses HTN (hypertension) I10 Post-menopausal Z78.0 Infection of ear lobe H60.399 Additional Codes IRLANDA-7 Assessment Billing - IRLANDA-7 Assessment Tool: IRLANDA-7 Assessment 50476 ([id number])
[2024-02-29 13:32] VITALS: BP 124/64; PULSE 63; O2SAT 98; BMI 28.9
== END 2024-02-29 14:02 | disposition home or self-care (01) ==
PROVIDERS: PCP Nurse Practitioner Family; Visit Provider Nurse Practitioner Family
DX: I10 Essential (primary) hypertension (principal); Z78.0 Asymptomatic menopausal state; H60.391 Other infective otitis externa, right ear
CPT/HCPCS: 99213

== ENCOUNTER 2024-03-24 13:42 | Outpatient (AMB) | payer OTHER, SELFPAY ==
[2024-03-24 13:44] VITALS: BP 120/80; PULSE 71; TEMP 36.6; O2SAT 97; BMI 28.9
--- NOTE | 2024-03-24 13:44 | MHC.OFFWIV ---
Intake Vital Signs 03/24/24 13:44 Height 5 ft 2 in Weight 158 lb BMI 28.9 BP 120/80 Blood Pressure Location Rt brachial Position Sitting Pulse 71 Pulse Source Pulse Oximeter Temp 97.9 F Temp Source Oral Pulse Oximetry (%) 97 Oxygen Delivery Method Room Air Intake Visit Reasons: EP RT ear diff hearing Intake Note: pt is here for rt ear concerns Patient Tobacco Use Status: Never used Tobacco Allergies No Known Allergies Allergy (Verified 03/24/24 13:44) Do you need a note to return to daycare/school/sports/work: No HPI EP RT ear diff hearing HPI Details This is an 83-year-old female patient who presents today to the [facility] for report of right ear wax and some loss of hearing in that ear. Reports she has a history of cerumen impaction. Has been trying hydrogen peroxide and at home here flashes without relief. She denies any ear pain or sick symptoms. [facility] Medical History Osteopenia Hypothyroid HTN (hypertension) GERD (gastroesophageal reflux disease) Surgical History History of partial hysterectomy History of knee replacement procedure of right knee History of colonoscopy Family History Father No problems noted. Mother No problems noted. Maternal Grandfather No problems noted. Maternal Grandmother No problems noted. Paternal Grandfather No problems noted. Paternal Grandmother No problems noted. Daughter No problems noted. Daughter No problems noted. Social History Housing: House Alcohol intake: never Patient Tobacco Use Status: Never used Tobacco e-Cigarette/Vaping Use: Never Used Second Hand Smoke Exposure: No service: No Current occupational status: retired and other (she works 5 hrs a day ) Current occupation: [employer] Cognitive needs: No Hearing needs: No Vision needs: No Review of Systems Const All systems reviewed & are unremarkable except as noted in HPI and below Physical Exam Const General: cooperative and healthy appearing HEENT Head: Yes normal to inspection Ears: Abnormal EAC present cerumen impaction bilateral, hearing grossly impaired bilaterally and unable to visualize TM bilaterally General nose exam: Normal external nose present Throat: Yes posterior oropharynx normal Neck Neck: Yes normal visual inspection Resp Effort & Inspection: normal respiratory effort Skin General skin exam: no rashes or lesions noted Extrem General: Yes no clubbing, cyanosis or edema Psych Appearance: grossly normal Mental Status: mental status grossly normal Speech and movement: Normal speech and movement present Office Procedures Cerumen Removal From which ear canal was the cerumen removed: bilateral Removal: irrigation and cerumen loop/spoon Notes: patient tolerated procedure well, no complications and ear canal clear 63301-[id number] Irrigation/Lavage Assessment & Plan Assessment & Plan (1) Impacted cerumen, bilateral: Code(s): H61.23 - Impacted cerumen, bilateral Plan: Irrigation of both ears done in the office today, with significant amount of wax removed via irrigation and also with cerumen loop. Patient tolerated this well and I was able to visualize TMs following wax removal, which were normal. I advised her to use Debrox drops otc for any recurrence of wax buildup/impaction, and to return to the clinic for any further needs. She agrees to plan. Coding Level of Care Code Est Pt Level 4 (33316) Diagnoses Impacted cerumen, bilateral H61.23 CPT Codes Office Procedure - CPT: 54548-Vyh Irrigation/Lavage ([id number])
--- OUTSIDE RECORDS SUMMARY | 2024-03-24 13:44 | XMS_ITS | Patient Health Record ---
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 . . for . Not-Taking Atenolol 50 MG Orally Activ e Simvastatin 20 MG Orally Ac tive Amoxicillin 500 MG Orally 4x Dentist A ctive Levothyroxine Sodium 75 MCG Orally Active Omeprazole 20 MG Orally Act moses Vitamin D 1000 UNIT Orally Active Celecoxib 200 MG Orally Not -Taking Calcium Active Cephalexin 500 MG 1 tablet Orally Twic e a day for 5 days Not-Taking Ammonium Lactate 12 % 1 application Externally Twice a day for 30 days Not-Taking IMMUNIZATIONS Vaccine Route Administration Date Status Comme nts COVID-19 Pfizer BioNTech Vaccine Unknown 06/12/2021 Administered First Dose:10/17/2020 Second Dose:11/07/2020 SOCIAL HISTORY Tobacco Use: Social History Observation Description Date Details (start date - stop date) Never Smoker NA - NA Sex Assigned At : Social History Observation Description Sex Assigned At Unknown Tobacco Use/Smoking Question Answer Notes Are you a: nonsmoker Additional Findings: Tobacco Non-User Current no n-smoker Alcohol Screen Question Answer Notes Did you have a drink contain ing alcohol in the past year? Yes How often did you have a dri nk containing alcohol in the past year? Monthly or less (1 point) Points 1 Interpretation Negative Tobacco use other than smoking: Question Answer Notes Are you an other tobacco user? No PROBLEMS Problem Type ICD Code Onset Dates Problem Status W/U Status Risk SNOMED Code Notes Problem Hallux valgus (acquired), left foot (M20.12) Active confirmed Acquired hallux valgus (70225858) Problem Hallux valgus (acquired), right foot (M20.11) Active confirmed Acquired hallux valgus (81170316) Problem Other hammer toe(s) (acquired), right foot (M20.41) Active confirmed Acquired hammer toe of right foot (739298598207 9105) Problem Other hammer toe(s) (acquired), left foot (M20.42) Active confirmed Acquired hammer toe of left foot (741220329031 9103) Problem Hallux rigidus of right foot (M20.21) Active confirmed 613459399 Problem Hallux rigidus of left foot (M20.22) Active confirmed 376068627 Problem PlantarFlexion of metatarsal of right foot (M21.6X1) Active confirmed Acquired deformity of right foot (130838631137 60007) Problem PlantarFlexion of metatarsal of left foot (M21.6X2) Active confirmed Acquired deformity of left foot (005660248793 33370) VITAL SIGNS Blood pressure diastolic 72 mm Hg 12/16/2023 Height 5ft in 12/16/2023 Blood pressure systolic 120 mm Hg 12/16/2023 Weight 160 lbs 12/16/2023 BMI 31.24 kg/m2 12/16/2023 PROCEDURES Procedure Date Ordered Date Performed Result Body Sit e 97802-XMIIVBT NAIL, 6 OR MORE 05/31/2023 N/A 58874-MATSDBP NAIL, 6 OR MORE 09/16/2023 N/A 12584-QOMNCCM NAIL, 6 OR MORE 12/16/2023 N/A Encounters Encounter Location Date Provider Diagnosis [facility] [place] [address] [place] [address] 05/31/2023 Irais Black Tinea unguium B35.1 ; Pain in right toe(s) M79.674 and Pain in left toe(s) M79.675 [facility] [address] [address] 09/16/2023 Irais Black Tinea unguium B35.1 ; Xerosis of skin L85.3 ; Pain in right toe(s) M79.674 and Pain in left toe(s) M79.675 [facility] [address] 09/20/2023 Irais Black [facility] [address] [address] 09/21/[address] [facility] [address] [address] 09/21/[address] [facility] [address] 12/16/2023 Irais Black Tinea unguium B35.1 ; Xerosis of skin L85.3 ; Pain in right toe(s) M79.674 and Pain in left toe(s) M79.675 ASSESSMENTS Encounter Date Diagnosis Assessment Notes Treatment Notes Treatment Clinical Notes 05/31/2023 Tinea unguium (ICD-10 - B35.1) 05/31/2023 Pain in right toe(s) (ICD-10 - M79.674) 09/16/2023 Tinea unguium (ICD-10 - B35.1) 09/16/2023 Xerosis of skin (ICD-10 - L85.3) 12/16/2023 Tinea unguium (ICD-10 - B35.1) 12/16/2023 Xerosis of skin (ICD-10 - L85.3) Response to treatment - Improvement 12/16/2023 Pain in right toe(s) (ICD-10 - M79.674) 09/16/2023 Pain in right toe(s) (ICD-10 - M79.674) 05/31/2023 Pain in left toe(s) (ICD-10 - M79.675) 09/16/2023 Pain in left toe(s) (ICD-10 - M79.675) 12/16/2023 Pain in left toe(s) (ICD-10 - M79.675) PLAN OF TREATMENT Pending Test Test Name Order Date 61559-MZPUNLF NAIL, 6 OR MORE 03/30/2019 89523-ANZSYUC NAIL, 6 OR MORE 07/03/2019 58931-FBBAELS NAIL, 6 OR MORE 10/05/2019 82169-JGBYVWR NAIL, 6 OR MORE 01/04/2020 63090-YIHQKBQ NAIL, 6 OR MORE 09/26/2020 40266-JEXOKPW NAIL, 6 OR MORE 12/26/2020 06993-UPJAYXH NAIL, 6 OR MORE 03/27/2021 38355-HPYRSGT NAIL, 6 OR MORE 07/07/2021 17613-JUZFVIB NAIL, 6 OR MORE 10/20/2021 27795-RUGMIIM NAIL, 6 OR MORE 01/19/2022 07960-ILEEAEU NAIL, 6 OR MORE 04/27/2022 81110-UUMBCHA NAIL, 6 OR MORE 07/27/2022 89787-JUQEFPV NAIL, 6 OR MORE 11/30/2022 34015-MVWAMDK NAIL, 6 OR MORE 03/01/2023 94771-UHLYKSG NAIL, 6 OR MORE 05/31/2023 56470-NNOICSL NAIL, 6 OR MORE 09/16/2023 41106-LNYWSHF NAIL, 6 OR MORE 12/16/2023 65036-NAJQOEQ NAIL, 6 OR MORE 12/26/2018 11269-GSNVLOD NAIL, 6 OR MORE 06/17/2020 96514-Aopwvcsk Plate 09/26/2020 31464-Brxrmojy Plate 07/27/2022 89463-Lhngsjgu Plate 10/20/2021 13489-Cmqrhfzr Plate 01/04/2020 Next Appt Details Provider Name:Irais Barger Darin , 04/17/2024 01:30:00 PM, [address] [facility], [place], [address], Insurance Providers Payer Name Payer Address Payer Phone Subscriber Number Group Number Insured Name Patient Relationship to Insured Coverage Start Date Coverage End Date [employer] [place] [employer]age [facility] [address] [place] [id number] Kerri Webber Self - patient is the insured MEDICAL (GENERAL) HISTORY Medical History History ICD Code Cataracts Measles Chicken pox Hypertension Reflux ( GERD) thyroid Surgical History Surgery Date(Month/Year) knee replacement 2006 colonoscopy Partial - Dental- False teeth
== END 2024-03-24 14:20 | disposition home or self-care (01) ==
PROVIDERS: PCP Nurse Practitioner Family; Visit Provider Nurse Practitioner Family
DX: H61.23 Impacted cerumen, bilateral (principal)
CPT/HCPCS: 69210; 99214

== ENCOUNTER 2024-05-10 14:05 | Outpatient (AMB) | payer OTHER, SELFPAY ==
--- NOTE | 2024-05-10 14:07 | MHC.OFFWIV ---
Intake Vital Signs 05/10/24 14:08 Height 5 ft 2 in Weight 156 lb 8 oz BMI 28.6 BP 130/86 Blood Pressure Location Rt brachial Position Sitting Pulse 64 Pulse Source Pulse Oximeter Pulse Oximetry (%) 97 Oxygen Delivery Method Room Air Intake Visit Reasons: EP- Rash on neck Intake Note: Patient here for rash on left side of neck that has been present for over 1 week. Patient Tobacco Use Status: Never used Tobacco Allergies No Known Allergies Allergy (Verified 05/10/24 14:10) Medication List - Last Reconciled 05/10/24 by Gerardo Medeiros MD amoxicillin 2,000 mg (4 x 500 mg) PO ONCE 1 day ascorbate calcium (vitamin C) 500 mg PO DAILY atenolol 50 mg PO DAILY 90 days celecoxib 200 mg PO DAILY cholecalciferol (vitamin D3) 25 mcg PO DAILY famciclovir 500 mg PO Q8H 7 days levothyroxine 75 mcg PO DAILY 90 days omeprazole 20 mg PO DAILY 90 days prednisone 20 mg PO DAILY 3 days simvastatin 40 mg PO BEDTIME 90 days vitamin B complex ER (Complex B-100 tablet,extended release) 1 tab PO DAILY Do you need a note to return to daycare/school/sports/work: No HPI EP- Rash on neck HPI Details Patient is 83-year-old female came in today to be evaluated for rash on her neck which started 3 days ago Patient says that 1 day she woke up and she had rash It is only on 1 side of her neck left side She applied hydrocortisone cream which did not help Rash feels slightly itchy and irritated There is no fever no chills no nausea no vomiting Patient is about to have surgery for her knee 24 of May On examination it looks like a shingles rash Following cervical dermatome C4 left side Treating her with famciclovir for 7 days Prednisone 20 mg for 3 days once a day [facility] Medical History Osteopenia Hypothyroid HTN (hypertension) GERD (gastroesophageal reflux disease) Surgical History History of partial hysterectomy History of knee replacement procedure of right knee History of colonoscopy Family History Father No problems noted. Mother No problems noted. Maternal Grandfather No problems noted. Maternal Grandmother No problems noted. Paternal Grandfather No problems noted. Paternal Grandmother No problems noted. Daughter No problems noted. Daughter No problems noted. Social History Housing: House Alcohol intake: never Patient Tobacco Use Status: Never used Tobacco e-Cigarette/Vaping Use: Never Used Second Hand Smoke Exposure: No service: No Current occupational status: retired and other (she works 5 hrs a day ) Current occupation: [employer] Cognitive needs: No Hearing needs: No Vision needs: No Review of Systems Const All systems reviewed & are unremarkable except as noted in HPI and below Physical Exam Vital Signs: Last Vital Signs Pulse 64 05/10/24 14:08 BP 130/86 05/10/24 14:08 Pulse Ox 97 05/10/24 14:08 Oxygen Delivery Method Room Air 05/10/24 14:08 BMI result Body Mass Index 28.6 Const General: no acute distress Orientation/consciousness: patient oriented x3 Eyes General: appearance normal, both eyes and all related structures Resp Effort & Inspection: normal respiratory effort and able to speak in complete sentences Skin Full body images: 1. Erythematous rash slightly vesicular Neuro General: patient oriented x3 Psych Mental Status: mental status grossly normal Assessment & Plan Assessment & Plan (1) Herpes zoster: Code(s): B02.9 - Zoster without complications Qualifiers: Herpes zoster complications: without complications Qualified Code(s): B02.9 - Zoster without complications Plan Patient is 83-year-old female came in today to be evaluated for rash on her neck which started 3 days ago Patient says that 1 day she woke up and she had rash It is only on 1 side of her neck left side She applied hydrocortisone cream which did not help Rash feels slightly itchy and irritated There is no fever no chills no nausea no vomiting Patient is about to have surgery for her knee 24 of May On examination it looks like a shingles rash Following cervical dermatome C4 left side Treating her with famciclovir for 7 days Prednisone 20 mg for 3 days once a day Medications: New prednisone 20 mg PO DAILY 3 tabs 0RF 3 days famciclovir 500 mg PO Q8H 21 tabs 0RF 7 days Coding Level of Care Code Est Pt Level 3 (23897) Diagnoses Herpes zoster without complication B02.9 Herpes zoster complications: without complications
[2024-05-10 14:08] VITALS: BP 130/86; PULSE 64; O2SAT 97; BMI 28.6
== END 2024-05-10 14:59 | disposition home or self-care (01) ==
PROVIDERS: PCP Nurse Practitioner Family; Visit Provider Internal Medicine
DX: B02.9 Zoster without complications (principal)
CPT/HCPCS: 99213

== ENCOUNTER 2024-06-12 14:13 | Outpatient (AMB) | payer OTHER, SELFPAY ==
[2024-06-12 14:17] VITALS: BP 120/70; PULSE 65; O2SAT 95; BMI 28.9
--- NOTE | 2024-06-12 14:17 | MHC.PC.OV ---
Vital Signs 06/12/24 14:17 Height 5 ft 2 in Weight 158 lb BMI 28.9 BP 120/70 Blood Pressure Location Rt brachial Position Sitting Pulse 65 Pulse Source Pulse Oximeter Pulse Oximetry (%) 95 Oxygen Delivery Method Room Air Intake Visit Reasons: Shingles Intake Note: Pt is here today for shingles, pt states she had it in the middle of April. Allergies No Known Allergies Allergy (Verified 06/12/24 15:10) Medication List - Last Reconciled 06/12/24 by MYAH Wynne ascorbate calcium (vitamin C) 500 mg PO DAILY atenolol 50 mg PO DAILY 90 days celecoxib 200 mg PO DAILY cholecalciferol (vitamin D3) 25 mcg PO DAILY levothyroxine 75 mcg PO DAILY 90 days omeprazole 20 mg PO DAILY 90 days prednisone 10 mg orally: 4 tabs for 2 days, 3 tabs for 2 days, 2 tabs for 2days, 1 tab for 2 days, .5 tabs for 2 days; 10 days simvastatin 40 mg PO BEDTIME 90 days valacyclovir 1,000 mg PO Q8H 7 days vitamin B complex ER (Complex B-100 tablet,extended release) 1 tab PO DAILY Tobacco use date assessed: 06/12/24 Fall risk assessment: No Falls in past year Last assessed Fall Risk: 06/12/24 Dental Screening Dental Screen Date: 06/12/24 Did you have a dental visit in the last 12 months?: Yes Did you have a dental problem in the last 6 months where you did not have access to dental care?: No Was dental information given to patient?: Patient has dentist HPI Shingles HPI Details Pt was seen in the walk-in on 05/10 with a rash to her neck. She was treated for shingles with prednisone and famciclovir (started in upper left chest). Pt reports an ongoing rash to her face just inferior to bilat eyes. Will send prednisone. Recommended moisturizer as well, will refer to derm if continued rash, though she reports it is getting better. Denies no onset blurred vision, fever, chills, and dizziness. [facility] Medical History Osteopenia Hypothyroid HTN (hypertension) GERD (gastroesophageal reflux disease) Surgical History History of partial hysterectomy History of knee replacement procedure of right knee History of colonoscopy Family History Father No problems noted. Mother No problems noted. Maternal Grandfather No problems noted. Maternal Grandmother No problems noted. Paternal Grandfather No problems noted. Paternal Grandmother No problems noted. Daughter No problems noted. Daughter No problems noted. Social History Housing: House Alcohol intake: never Patient Tobacco Use Status: Never used Tobacco e-Cigarette/Vaping Use: Never Used Second Hand Smoke Exposure: No service: No Current occupational status: retired and other (she works 5 hrs a day ) Current occupation: [employer] Cognitive needs: No Hearing needs: No Vision needs: No Questionnaire PHQ-9 Over the last 2 weeks, how often have you been bothered by any of the following problems? 1. Little interest or pleasure in doing things: not at all 2. Feeling down, depressed, or hopeless: not at all 3. Trouble falling or staying asleep, or sleeping too much: not at all 4. Feeling tired or having little energy: not at all 5. Poor appetite or overeating: not at all 6. Feeling bad about yourself - or that you are a failure or have let yourself or your family down: not at all 7. Trouble concentrating on things, such as reading the newspaper or watching television: not at all 8. Moving or speaking so slowly that other people could have noticed. Or the opposite - being so fidgety or restless that you have been moving around a lot more than usual: not at all 9. Thoughts that you would be better off or of hurting yourself in some way: not at all Total score: 0 Depression Screening Interpretation: Negative Depression Screening Done: Yes 36898 - PHQ-9 Billing: Yes Source: Developed by Drs. Billy Nguyen, Leticia Duke, Jamal Houston and colleagues, with an educational rosette from [employer]. Thrive Questionnaire Date Thrive assessed: 06/12/24 I am a: Patient What is your living situation today?: I have a steady place to live Within the past 12 months, did the food you bought not last and you didn't have the money to get more?: Never true Within the past 12 months, did you worry whether your food would run out before you got money to buy more?: Never true Do you have trouble paying for medicines?: No Do you have trouble getting transportation to medical appointments?: No Do you have trouble paying your heating and electricity bill?: No Do you have trouble taking care of your child, family member or friend?: No Do you have trouble with day-to-day activities such as bathing, preparing meals, shopping, managing finances, etc.?: No Are you currently unemployed and looking for a job?: No Are you interested in more education?: No Please select the resources that you would like help with: Transportation Currently or been in a relationship where the following occur: No concerns reported THRIVE Score: 0 AUDIT C Alcohol Use Questionnaire (AUDIT-C) 1. How often do you have a drink containing alcohol?: Never 3. How often do you have six or more drinks on one occasion?: Never Total Score: 0 Score Reviewed/Action Taken: Yes IRLANDA-7 AMB Questionnaire IRLANDA-7 Date IRLANDA - 7 assessed: 06/12/24 Feeling nervous, anxious, or on edge: 0 = Not at all Not being able to stop or control worryin = Not at all Worrying too much about different things: 0 = Not at all Trouble relaxin = Not at all Being so restless that it is hard to sit still: 0 = Not at all Becoming easily annoyed or irritable: 0 = Not at all Feeling afraid as if something awful might happen: 0 = Not at all Total IRLANDA-7 score (0-4 normal; 5-9 mild; 10-14 moderate; 15-21 severe): 0 Source: Developed by Drs. Billy Nguyen, Leticia Duke, Jamal Houston and colleagues, with an educational rosette from [employer]. IRLANDA-7 Assessment Billing IRLANDA-7 Assessment Tool: IRLANDA-7 Assessment 14111 Review of Systems Const Reports as per HPI Physical exam (Primary Care) Vital Signs: Last Vital Signs Pulse 65 06/12/24 14:17 BP 120/70 06/12/24 14:17 Pulse Ox 95 06/12/24 14:17 Oxygen Delivery Method Room Air 06/12/24 14:17 BMI result Body Mass Index 28.9 Tobacco/Smoking Status: Tobacco use Status Tobacco use date assessed 06/12/24 06/12/24 14:25 Patient Tobacco Use Status Never used Tobacco 06/12/24 14:17 e-Cigarette/Vaping Use Never Used 06/12/24 14:17 PHQ-9: PHQ-9 Score PHQ-9: Total score 0 06/12/24 14:27 Depression Screening Interpretation: Negative Thrive Assessment: Date of Thrive Assessment Date Thrive assessed 06/12/24 06/12/24 14:26 Currently or been in a relationship where the following occur: No concerns reported Const General: cooperative Orientation/consciousness: patient oriented x3 Resp Effort & Inspection: normal respiratory effort Auscultation: clear to auscultation bilaterally Cardio Rate: regular rate Rhythm: regular rhythm Heart sounds: S1 normal heart sound present and S2 normal heart sound present Skin Other: dermatitis/dry just inferior to bilat eyes, dry skin around lips with faint erythema Neuro General: patient oriented x3 Psych Appearance: grossly normal Mental Status: mental status grossly normal Speech and movement: Normal speech and movement present Affect: normal affect Attitude: cooperative Thought process: Normal thought process present Thought content: Normal thought content present Insight: Good insight present (Psych) Judgement: Good judgement present (Psych) Assessment and Plan Assessment & Plan (1) Rash: Code(s): R21 - Rash and other nonspecific skin eruption Plan: will consider Derm in the future if rash does not disappear. Otherwise, moisturizers and prednisone Plan The patient agreed to the use of a medical records auditor for this encounter. Scribed for MYAH Kurtz by Blanca Cruz medical records auditor, on 06/12/2024 at 14:30 EST. Medications: New prednisone 10 mg orally: 4 tabs for 2 days, 3 tabs for 2 days, 2 tabs for 2days, 1 tab for 2 days, .5 tabs for 2 days; 21 tabs 0RF 10 days Coding Level of Care Code Est Pt Level 3 (73303) Diagnoses Rash R21 Additional Codes IRLANDA-7 Assessment Billing - IRLANDA-7 Assessment Tool: IRLANDA-7 Assessment 47512 ([id number])
== END 2024-06-12 15:30 | disposition home or self-care (01) ==
PROVIDERS: PCP Nurse Practitioner Family; Visit Provider Nurse Practitioner Family
DX: R21 Rash and other nonspecific skin eruption (principal)

== ENCOUNTER → 2024-06-12 14:13 | Outpatient (BNVA) | payer OTHER, SELFPAY | PROVIDERS: PCP Nurse Practitioner Family; Visit Provider Nurse Practitioner Family | DX: R21 Rash and other nonspecific skin eruption (principal) | CPT/HCPCS: 96127 ==

== ENCOUNTER 2024-07-19 13:57 | Outpatient (REF) | payer MEDICARE, SELFPAY ==
--- NOTE | ~2024-07-19 | MM_ITS ---
EXAMINATION: MM SCREENING DIGITAL BREAST TOMOSYNTHESIS, BILATERAL CLINICAL INFORMATION: Screening. Asymptomatic. COMPARISON: Mammography: Comparison is made with available priors TECHNIQUE: Digital breast mammography with tomosynthesis is performed in both the craniocaudal and mediolateral oblique views along with computer-aided detection (CAD). FINDINGS: The breasts are heterogeneously dense, which may obscure small masses (ACR BI-RADS breast composition Category c). There are no significant masses, abnormal calcifications, or other abnormalities. MM/MM tomosynthesis screening BI IMPRESSION: No mammographic evidence of malignancy. ASSESSMENT: BI-RADS BI-RADS 1 - Negative RECOMMENDATION: Routine annual mammography screening. 1 year F/U This examination should not preclude the clinical evaluation of a suspicious palpable abnormality. This patient's information was entered into a reminder system with a target due date for their next mammogram. Electronically signed by: Viktoria Choi DO 07/28/2024 01:40 PM [facility]
== END 2024-07-19 13:58 | disposition home or self-care (01) ==
LOC: HO.MAMMO 13:57
PROVIDERS: PCP Nurse Practitioner Family; Visit Provider Nurse Practitioner Family
DX: Z12.31 Encounter for screening mammogram for malignant neoplasm of breast (principal)
CPT/HCPCS: 77063; 77067

== ENCOUNTER → 2024-07-19 14:30 | Outpatient (BNV) | payer MEDICARE, SELFPAY | PROVIDERS: PCP Nurse Practitioner Family; Visit Provider Internal Medicine | DX: Z12.31 Encounter for screening mammogram for malignant neoplasm of breast (principal) | CPT/HCPCS: 77063; 77067 ==

== ENCOUNTER 2024-10-03 14:41 | Outpatient (AMB) | payer OTHER, SELFPAY ==
[2024-10-03 14:44] VITALS: BP 122/76; PULSE 66; O2SAT 96; BMI 29.3
--- NOTE | 2024-10-03 14:44 | MHC.PC.OV ---
Vital Signs 10/03/24 14:44 Height 5 ft 2 in Weight 160 lb BMI 29.3 BP 122/76 Blood Pressure Location Rt brachial Position Sitting Pulse 66 Pulse Source Pulse Oximeter Pulse Oximetry (%) 96 Intake Visit Reasons: PE Intake Note: pt is here for PE Web Methods Developer Required: No Accompanied by: Self / Same As Patient Allergies No Known Allergies Allergy (Verified 10/03/24 14:45) Medication List - Last Reconciled 10/03/24 by MYAH Wynne amoxicillin 2,000 mg (4 x 500 mg) PO ONCE 1 day ascorbate calcium (vitamin C) 500 mg PO DAILY atenolol 50 mg PO DAILY 90 days celecoxib 200 mg PO DAILY cholecalciferol (vitamin D3) 25 mcg PO DAILY levothyroxine 75 mcg PO DAILY 90 days omeprazole 20 mg PO DAILY 90 days simvastatin 40 mg PO BEDTIME 90 days vitamin B complex ER (Complex B-100 tablet,extended release) 1 tab PO DAILY Tobacco use date assessed: 10/03/24 Fall risk assessment: No Falls in past year Last assessed Fall Risk: 10/03/24 Dental Screening Dental Screen Date: 10/03/24 Did you have a dental visit in the last 12 months?: Yes Did you have a dental problem in the last 6 months where you did not have access to dental care?: No Was dental information given to patient?: Patient has dentist HPI PE HPI Details History of Present Illness The patient is an 84-year-old female presenting for a wellness examination. During the visit, she did not report any symptoms such as dizziness, headache, blurred vision, chest pain, shortness of breath, gastrointestinal bleeding, constipation, diarrhea, depression, anxiety, suicidal ideation, or homicidal ideation. Her blood pressure was noted as stable. She mentioned that her mammogram is up to date but anticipates discontinuing them in the future. She noted that she no longer receives colon cancer screening. The patient is still employed and is contemplating reducing her working hours or fully retiring, particularly in anticipation of her upcoming left total knee arthroplasty. Health Maintenance - Mammogram is currently up to date. - Patient no longer undergoes colorectal cancer screening. - Blood pressure management and stability addressed. Social History - Continues to be employed but considering part-time work or nursing home. - Plans for left total knee arthroplasty, influencing decisions about work. Review of Systems - Ears: Denies hearing loss, tinnitus, or ear pain. - Neurological: Denies dizziness, headache, or changes in vision. - Respiratory: Denies shortness of breath. - Cardiovascular: Denies chest pain. - Gastrointestinal: Denies diarrhea, constipation, or blood in stool. - Psychiatric: Denies depression, anxiety, suicidal or homicidal ideations. Physical Exam General: Cooperative, healthy appearing, comfortable, no acute distress and well developed Orientation: Patient oriented x3 Limitations: No limitations Head: Normal to inspection Ears: Hearing grossly normal bilaterally, but narrow ear canals noted. Ear wax was present but easily removed, and TMs were easily seen. Nose: Normal external nose present Face and sinus: Normal facial exam Eyes: Appearance normal, both eyes and all related structures Neck: Normal visual inspection and Yes full ROM Respiratory: Normal respiratory effort and able to speak in complete sentences. Clear to auscultation bilaterally Cardiovascular: Regular rate and rhythm. Normal S1 and S2 GI: Normal to inspection. Soft to palpation and nontender Skin: ranging in size a shape skin lesions to head/face, fair skinned Neuro: Patient oriented x3 Extremities: Normal to inspection Results Plan - Address ear wax buildup with routine cleaning to maintain clear ear canals. - Maintain current blood pressure management given its stability. - Continue with current health screenings until advised otherwise in future consultations. Patient was informed and verbally consented to the use of an ambient scribe for clinic note documentation during this visit. Discussion Notes I discussed the importance of ongoing management and monitoring of ear health, particularly with noted cerumen buildup, and ensuring regular cleaning to prevent any blockage. The patient was informed about the stability of her blood pressure and the current status of her health maintenance screenings, including the decision to potentially discontinue mammograms and the cessation of colon screenings. The upcoming knee surgery was acknowledged as a significant step in her health care, and its influence on her work life and potential nursing home was discussed. Patient education included the appropriateness of consulting healthcare providers before making changes to her health maintenance routine. Patient Instructions - Schedule routine ear cleanings to manage ear wax buildup effectively. - Monitor blood pressure regularly and maintain management plan. - Consider reducing work hours or nursing home in preparation for knee surgery recovery. - Continue attending regular health check-ups and screenings as discussed. [facility] Medical History Osteopenia Hypothyroid HTN (hypertension) GERD (gastroesophageal reflux disease) Surgical History History of partial hysterectomy History of knee replacement procedure of right knee History of colonoscopy Family History Father No problems noted. Mother No problems noted. Maternal Grandfather No problems noted. Maternal Grandmother No problems noted. Paternal Grandfather No problems noted. Paternal Grandmother No problems noted. Daughter No problems noted. Daughter No problems noted. Social History Housing: House Alcohol intake: never Patient Tobacco Use Status: Never used Tobacco e-Cigarette/Vaping Use: Never Used Second Hand Smoke Exposure: No service: No Current occupational status: retired and other (she works 5 hrs a day ) Current occupation: [employer] Cognitive needs: No Hearing needs: No Vision needs: No Questionnaire PHQ-9 Over the last 2 weeks, how often have you been bothered by any of the following problems? 1. Little interest or pleasure in doing things: not at all 2. Feeling down, depressed, or hopeless: not at all 3. Trouble falling or staying asleep, or sleeping too much: not at all 4. Feeling tired or having little energy: not at all 5. Poor appetite or overeating: not at all 6. Feeling bad about yourself - or that you are a failure or have let yourself or your family down: not at all 7. Trouble concentrating on things, such as reading the newspaper or watching television: not at all 8. Moving or speaking so slowly that other people could have noticed. Or the opposite - being so fidgety or restless that you have been moving around a lot more than usual: not at all 9. Thoughts that you would be better off or of hurting yourself in some way: not at all Total score: 0 Depression Screening Interpretation: Negative Depression Screening Done: Yes 88379 - PHQ-9 Billing: Yes Source: Developed by Drs. Billy Nguyen, Leticia Duke, Jamal Houston and colleagues, with an educational rosette from [employer]. Thrive Questionnaire Date Thrive assessed: 10/03/24 I am a: Patient What is your living situation today?: I have a steady place to live Within the past 12 months, did the food you bought not last and you didn't have the money to get more?: Never true Within the past 12 months, did you worry whether your food would run out before you got money to buy more?: Never true Do you have trouble paying for medicines?: No Do you have trouble getting transportation to medical appointments?: No Do you have trouble paying your heating and electricity bill?: No Do you have trouble taking care of your child, family member or friend?: No Do you have trouble with day-to-day activities such as bathing, preparing meals, shopping, managing finances, etc.?: No Are you currently unemployed and looking for a job?: No Are you interested in more education?: No Please select the resources that you would like help with: Transportation Currently or been in a relationship where the following occur: No concerns reported THRIVE Score: 0 AUDIT C Alcohol Use Questionnaire (AUDIT-C) 1. How often do you have a drink containing alcohol?: Never 3. How often do you have six or more drinks on one occasion?: Never Total Score: 0 Score Reviewed/Action Taken: Yes IRLANDA-7 AMB Questionnaire IRLANDA-7 Date IRLANDA - 7 assessed: 10/03/24 Feeling nervous, anxious, or on edge: 0 = Not at all Not being able to stop or control worryin = Not at all Worrying too much about different things: 0 = Not at all Trouble relaxin = Not at all Being so restless that it is hard to sit still: 0 = Not at all Becoming easily annoyed or irritable: 0 = Not at all Feeling afraid as if something awful might happen: 0 = Not at all Total IRLANDA-7 score (0-4 normal; 5-9 mild; 10-14 moderate; 15-21 severe): 0 Source: Developed by Drs. Billy Nguyen, Leticia Duke, Jamal Houston and colleagues, with an educational rosette from [employer]. IRLANDA-7 Assessment Billing IRLANDA-7 Assessment Tool: IRLANDA-7 Assessment 92833 Physical exam (Primary Care) Vital Signs: Last Vital Signs Pulse 66 10/03/24 14:44 BP 122/76 10/03/24 14:44 Pulse Ox 96 10/03/24 14:44 BMI result Body Mass Index 29.3 Tobacco/Smoking Status: Tobacco use Status Tobacco use date assessed 10/03/24 10/03/24 14:46 Patient Tobacco Use Status Never used Tobacco 10/03/24 14:46 e-Cigarette/Vaping Use Never Used 10/03/24 14:46 PHQ-9: PHQ-9 Score PHQ-9: Total score 0 10/03/24 15:45 Depression Screening Interpretation: Negative Thrive Assessment: Date of Thrive Assessment Date Thrive assessed 10/03/24 10/03/24 14:46 Currently or been in a relationship where the following occur: No concerns reported Office Procedures Cerumen Removal From which ear canal was the cerumen removed: bilateral Removal: irrigation and cerumen loop/spoon Notes: patient tolerated procedure well, no complications and ear canal clear [id number] Irrigation/Lavage Coding Level of Care Code Est Pt Prev Care >65y(62514) Diagnoses Physical exam Z00.00 Cerumen impaction H61.20 CPT Codes Office Procedure - CPT: 54539-Hiy Irrigation/Lavage ([id number]) Additional Codes IRLANDA-7 Assessment Billing - IRLANDA-7 Assessment Tool: IRLANDA-7 Assessment 72960 ([id number]) PHQ-9 - 80144 - PHQ-9 Billing: Yes ([id number]) Assessment & Plan Assessment & Plan (1) Physical exam: Code(s): Z00.00 - Encounter for general adult medical examination without abnormal findings Category: Medical (2) Cerumen impaction: Code(s): H61.20 - Impacted cerumen, unspecified ear Category: Medical Plan . Medications: New amoxicillin take 4 tabs approx 1 hr before any dental procedure 2,000 mg (4 x 500 mg) PO ONCE 4 caps 3RF 1 day
== END 2024-10-03 16:25 | disposition home or self-care (01) ==
PROVIDERS: PCP Nurse Practitioner Family; Visit Provider Nurse Practitioner Family
DX: Z00.00 Encounter for general adult medical examination without abnormal findings (principal); H61.23 Impacted cerumen, bilateral

== ENCOUNTER → 2024-10-03 14:41 | Outpatient (BNVA) | payer OTHER, SELFPAY | PROVIDERS: PCP Nurse Practitioner Family; Visit Provider Nurse Practitioner Family | DX: Z00.01 Encounter for general adult medical examination with abnormal findings (principal); H61.23 Impacted cerumen, bilateral | CPT/HCPCS: 69210; 96127 ==

== ENCOUNTER 2025-04-24 15:55 | Outpatient (AMB) | payer OTHER, SELFPAY ==
--- NOTE | 2025-04-24 15:57 | MHC.PC.OV ---
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 Required: No Accompanied by: Self / Same As Patient Allergies No Known Allergies Allergy (Verified 04/24/25 16:01) Tobacco use date assessed: 04/24/25 Fall risk assessment: 1 Fall in past year Last assessed Fall Risk: 04/24/25 Dental Screening Dental Screen Date: 04/24/25 Did you have a dental visit in the last 12 months?: Yes Did you have a dental problem in the last 6 months where you did not have access to dental care?: No Was dental information given to patient?: Patient has dentist HPI 6M Follow Up HPI Details Chief Complaint The patient presents for a follow-up regarding hypertension management. History of Present Illness The patient is an 84-year-old female presenting with a follow-up visit for hypertension management. Her hypertension is reported to be stable, and she denies experiencing any chest pain or dyspnea. The patient underwent a left total knee replacement in November 2024. She reports some residual swelling in the left lower extremity but denies any associated pain. There is no tenderness or warmth in the affected area. Social History - Employment: The patient continues to work and drives. Health Maintenance - Plan for future fasting laboratory tests. Review of Systems - Cardiovascular: Denies chest pain, blurred vision, WINTER, or dizziness - Respiratory: Denies dyspnea. Physical Exam General: Cooperative, healthy appearing, comfortable, no acute distress and well developed Orientation: Patient oriented x3 Limitations: No limitations Head: Normal to inspection Ears: Hearing grossly normal bilaterally Nose: Normal external nose present Face and sinus: Normal facial exam Eyes: Appearance normal, both eyes and all related structures Neck: Normal visual inspection and Yes full ROM Respiratory: Normal respiratory effort and able to speak in complete sentences. Clear to auscultation bilaterally Cardiovascular: Regular rate and rhythm. Normal S1 and S2 GI: Normal to inspection. Soft to palpation and nontender Skin: No rashes or lesions noted Neuro: Patient oriented x3 Extremities: Swelling to left lower extremity, no pain with palpation, no calf tenderness, no warmth. Normal to inspection on other extremities, palpable DPP Results Plan The patient's hypertension is stable, and no immediate changes to her management are necessary. Future fasting laboratory tests are planned to monitor her condition further. Regarding the postoperative swelling in her left lower extremity, no immediate intervention is required as there is no pain or tenderness. Discussion Notes I discussed with the patient that her hypertension is stable and that we will continue with the current management plan. I advised her to undergo fasting laboratory tests in the near future to monitor her health status. Patient Instructions - Continue current hypertension management plan. - Schedule and complete fasting laboratory tests as advised. [facility] Medical History Osteopenia Hypothyroid HTN (hypertension) GERD (gastroesophageal reflux disease) Surgical History History of total left knee replacement History of partial hysterectomy History of knee replacement procedure of right knee History of colonoscopy Family History Father No problems noted. Mother No problems noted. Maternal Grandfather No problems noted. Maternal Grandmother No problems noted. Paternal Grandfather No problems noted. Paternal Grandmother No problems noted. Daughter No problems noted. Daughter No problems noted. Social History Housing: House Alcohol intake: never Patient Tobacco Use Status: Never used Tobacco e-Cigarette/Vaping Use: Never Used Second Hand Smoke Exposure: No service: No Current occupational status: retired and other (she works 5 hrs a day ) Current occupation: [employer] Cognitive needs: No Hearing needs: No Vision needs: No Questionnaire PHQ-9 Over the last 2 weeks, how often have you been bothered by any of the following problems? 1. Little interest or pleasure in doing things: not at all 2. Feeling down, depressed, or hopeless: not at all 3. Trouble falling or staying asleep, or sleeping too much: not at all 4. Feeling tired or having little energy: not at all 5. Poor appetite or overeating: not at all 6. Feeling bad about yourself - or that you are a failure or have let yourself or your family down: not at all 7. Trouble concentrating on things, such as reading the newspaper or watching television: not at all 8. Moving or speaking so slowly that other people could have noticed. Or the opposite - being so fidgety or restless that you have been moving around a lot more than usual: not at all 9. Thoughts that you would be better off or of hurting yourself in some way: not at all Total score: 0 Depression Screening Interpretation: Negative Depression Screening Done: Yes 18078 - PHQ-9 Billing: Yes Source: Developed by Drs. Billy Nguyen, Leticia Duke, Jamal Houston and colleagues, with an educational rosette from [employer]. Thrive Questionnaire Date Thrive assessed: 10/03/24 IRLANDA-7 AMB Questionnaire IRLANDA-7 Date IRLANDA - 7 assessed: 04/24/25 Feeling nervous, anxious, or on edge: 0 = Not at all Not being able to stop or control worryin = Not at all Worrying too much about different things: 0 = Not at all Trouble relaxin = Not at all Being so restless that it is hard to sit still: 0 = Not at all Becoming easily annoyed or irritable: 0 = Not at all Feeling afraid as if something awful might happen: 0 = Not at all Total IRLANDA-7 score (0-4 normal; 5-9 mild; 10-14 moderate; 15-21 severe): 0 Source: Developed by Drs. Billy Nguyen, Leticia Duke, Jamal Houston and colleagues, with an educational rosette from [employer]. IRLANDA-7 Assessment Billing IRLANDA-7 Assessment Tool: IRLANDA-7 Assessment 41183 Physical exam (Primary Care) Vital Signs: Last Vital Signs Pulse 68 04/24/25 15:58 Resp 16 04/24/25 15:58 BP 130/70 04/24/25 15:58 Pulse Ox 95 04/24/25 15:58 BMI result Body Mass Index 27.8 Tobacco/Smoking Status: Tobacco use Status Tobacco use date assessed 04/24/25 04/24/25 16:03 Patient Tobacco Use Status Never used Tobacco 04/24/25 16:03 e-Cigarette/Vaping Use Never Used 04/24/25 16:03 PHQ-9: PHQ-9 Score PHQ-9: Total score 0 04/24/25 16:03 Depression Screening Interpretation: Negative Thrive Assessment: Date of Thrive Assessment Date Thrive assessed 10/03/24 04/24/25 16:03 Coding Level of Care Code Est Pt Level 3 (29728) Diagnoses HTN (hypertension) I10 Osteopenia M85.80 Vitamin D deficiency E55.9 Additional Codes IRLANDA-7 Assessment Billing - IRLANDA-7 Assessment Tool: IRLANDA-7 Assessment 76628 ([id number]) PHQ-9 - 49644 - PHQ-9 Billing: Yes ([id number]) Assessment & Plan Assessment & Plan (1) HTN (hypertension): Code(s): I10 - Essential (primary) hypertension Category: Medical (2) Osteopenia: Code(s): M85.80 - Other specified disorders of bone density and structure, unspecified site Category: Medical (3) Vitamin D deficiency: Code(s): E55.9 - Vitamin D deficiency, unspecified Category: Medical Plan . Orders: Orders Complete Blood Count Auto Diff Today E55.9 - Vitamin D deficiency, unspecified, I10 - Essential (primary) hypertension, M85.80 - Other specified disorders of bone density and structure, unspecified site Comprehensive [place]. Panel Fast Today E55.9 - Vitamin D deficiency, unspecified, I10 - Essential (primary) hypertension, M85.80 - Other specified disorders of bone density and structure, unspecified site Lipid Panel Today E55.9 - Vitamin D deficiency, unspecified, I10 - Essential (primary) hypertension, M85.80 - Other specified disorders of bone density and structure, unspecified site Vitamin D 25-OH Total Today E55.9 - Vitamin D deficiency, unspecified, I10 - Essential (primary) hypertension, M85.80 - Other specified disorders of bone density and structure, unspecified site TSH reflex Free T4 Today E55.9 - Vitamin D deficiency, unspecified, I10 - Essential (primary) hypertension, M85.80 - Other specified disorders of bone density and structure, unspecified site UA CC w/rflx Micro + Cult Today E55.9 - Vitamin D deficiency, unspecified, I10 - Essential (primary) hypertension, M85.80 - Other specified disorders of bone density and structure, unspecified site
[2025-04-24 15:58] VITALS: BP 130/70; PULSE 68; RESP 16; O2SAT 95; BMI 27.8
--- OUTSIDE RECORDS SUMMARY | 2025-04-24 16:30 | XMS_ITS | Patient Health Record ---
Author Organization [facility] Address [address] [place] [address] Care Team Providers Care Campus Manager Name Role Phone Hussein Espino Primary Care Provider Unav ailable Black, Irais Unavailable [phone] Allergies No Known Allergies Reason For Referral No Information Medications Medication SIG (Take, Route, Frequency, Duration) Notes Start Date End Date Status Amoxicillin 500 MG Orally 4x Dentist A ctive Simvastatin 20 MG Orally Ac tive Omeprazole 20 MG Orally Act moses Cephalexin 500 MG 1 tablet Orally Twic e a day; Duration: 5 days Not-Taking Levothyroxine Sodium 75 MCG Orally Active Calcium Active Ammonium Lactate 12 % 1 application Externally Twice a day; Duration: 30 days Not-Taking Vitamin D 1000 UNIT Orally Active Ciclopirox Olamine 0.77 % 1 application to affected area Externally Twice a day; Duration: 30 days 07/03/2019 Not-Taking Ammonium Lactate 12 % 1 application Externally Twice a day; Duration: 30 days 09/20/2023 Not-Taking Biotin Active zzzCompression Stockings 20-30mm Hg . . .; Duration: . Not-Takin g Celecoxib 200 MG Orally Act [facility] . . . 2-3x/week; Duration: 3-4 weeks 07/24/2024 Active Atenolol 50 MG Orally Activ e Immunizations Vaccine Route Administration Date Status Comme nts COVID-19 Pfizer BioNTech Vaccine Unknown 06/12/2021 Administered First Dose:10/17/2020 Second Dose:11/07/2020 Social History Tobacco Use: Social History Observation Description Date Details (start date - stop date) Never Smoker NA - NA Tobacco Use/Smoking Question Answer Notes Are you [...] Are you an other tobacco user? No Problems Problem Type SNOMED Code ICD Code Onset Dates Problem Status W/U Status Risk Notes Problem Tinea unguium (934714243) Tinea unguium (B35.1) Active confirmed Vital Signs Blood pressure diastolic 76 mm Hg 02/08/2025 Height 5ck07ip in 02/08/2025 Blood pressure systolic 122 mm Hg 02/08/2025 Weight 155 lbs 02/08/2025 BMI 32.39 kg/m2 02/08/2025 Procedures Procedure Date Ordered Date Performed Result Body Sit e 92433-GEUKIBG NAIL, 6 OR MORE 07/24/2024 N/A 68621-Meoyajgk Plate 07/24/2024 N/A 67840-NASWSTV NAIL, 6 OR MORE 10/26/2024 N/A 42561-FQIGVIG NAIL, 6 OR MORE 02/08/2025 N/A Encounters Encounter Location Date Provider Diagnosis [facility] [address] [address] 07/24/2024 Irais Black Other hammer toe(s) (acquired), right foot M20.41 ; Unsteady gait R26.81 ; Tinea unguium B35.1 ; Pain in right toe(s) M79.674 ; Arthritis of joint of lesser toe, right M19.071 ; Pain in left toe(s) M79.675 ; Other hammer toe(s) (acquired), left foot M20.42 ; Arthritis of joint of lesser toe, left M19.072 ; 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 ; 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 and Ingrown nail L60.[address] [facility] [address] [address] 10/26/2024 Irais Black Tinea unguium B35.1 ; Pain in right toe(s) M79.674 and Pain in left toe(s) M79.[address] [address] 02/08/2025 Irais Webster Tinea unguium B35.1 ; Pain in right toe(s) M79.674 and Pain in left toe(s) M79.[address] [address] 10/26/2024 Irais Webster Assessments Encounter Date Diagnosis (ICD Code) Assessment Notes Treatment Notes Treatment Clinical Notes Section Notes 07/24/2024 Other hammer toe(s) (acquired), right foot (ICD-10 - M20.41) t 07/24/2024 Unsteady gait (ICD-10 - R26.81) t 10/26/2024 Tinea unguium (ICD-10 - B35.1) t 10/26/2024 Pain in right toe(s) (ICD-10 - M79.674) t 02/08/2025 Tinea unguium (ICD-10 - B35.1) 10/26/2024 Pain in left toe(s) (ICD-10 - M79.675) t 07/24/2024 Tinea unguium (ICD-10 - B35.1) t 02/08/2025 Pain in right toe(s) (ICD-10 - M79.674) 07/24/2024 Pain in right toe(s) (ICD-10 - M79.674) t 02/08/2025 Pain in left toe(s) (ICD-10 - M79.675) 07/24/2024 Arthritis of joint of lesser toe, right (ICD-10 - M19.071) t 07/24/2024 Pain in left toe(s) (ICD-10 - M79.675) t 07/24/2024 Other hammer toe(s) (acquired), left foot (ICD-10 - M20.42) t 07/24/2024 Arthritis of joint of lesser toe, left (ICD-10 - M19.072) t 07/24/2024 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) t 07/24/2024 Crossover toe deformity of right foot (ICD-10 - M20.5X1) t 07/24/2024 Ingrown nail (ICD-10 - L60.0) t Plan Of Treatment Pending Test Test Name Order Date 22869-ZSPNSQE NAIL, 6 OR MORE 12/26/2018 57388-FWMOIUC NAIL, 6 OR MORE 03/30/2019 52230-RZDBTEY NAIL, 6 OR MORE 07/03/2019 74955-NUFWMAE NAIL, 6 OR MORE 10/05/2019 12957-WTURZLC NAIL, 6 OR MORE 01/04/2020 14944-APPLRWH NAIL, 6 OR MORE 09/26/2020 33124-XPRFPER NAIL, 6 OR MORE 12/26/2020 10533-UGQQDLC NAIL, 6 OR MORE 03/27/2021 25932-CMSEWOD NAIL, 6 OR MORE 07/07/2021 33444-SFJBEVO NAIL, 6 OR MORE 07/27/2022 09168-HFDRKZS NAIL, 6 OR MORE 11/30/2022 71670-GFYOXQL NAIL, 6 OR MORE 03/01/2023 68905-EFBUMGS NAIL, 6 OR MORE 05/31/2023 64246-XMRCPQB NAIL, 6 OR MORE 09/16/2023 04503-SBSJJKG NAIL, 6 OR MORE 12/16/2023 94175-EMQVLIM NAIL, 6 OR MORE 04/17/2024 84755-THKRACA NAIL, 6 OR MORE 10/20/2021 97555-TVURFMC NAIL, 6 OR MORE 01/19/2022 47521-KTBJANK NAIL, 6 OR MORE 04/27/2022 18876-YMNXRWE NAIL, 6 OR MORE 06/17/2020 23025-GSUVAWO NAIL, 6 OR MORE 07/24/2024 44512-HTBLJWH NAIL, 6 OR MORE 10/26/2024 09689-QJPOHSA NAIL, OR MORE 02/08/2025 46132-Upxasoph Plate 09/26/2020 15706-Bunckcbw Plate 07/27/2022 07704-Vytghbmn Plate 07/24/2024 82639-Zwdmvgpw Plate 10/20/2021 91235-Otbspvox Plate 01/04/2020 Next Appt Details Provider Name:Irais Barger Darin , 05/17/2025 01:30:00 PM, [address] [place], [address], Insurance Providers Payer Name Payer Address Payer Phone Subscriber Number Group Number Insured Name Patient Relationship to Insured Coverage Start Date Coverage End Date [employer] [address] [place] [address] [phone] [id number] Kerri Webber Self - patient is the insured 4 Medical (General) History Medical History History ICD Code Cataracts Measles Chicken pox Hypertension Reflux ( GERD) thyroid Other hammer toe(s) (acquired), left diane t M20.42 PlantarFlexion of metatarsal of left diane t M21.6X2 PlantarFlexion of metatarsal of right fo ot M21.6X1 Hallux rigidus of left foot M20.22 Other hammer toe(s) (acquired), right fo ot M20.41 Arthritis of joint of lesser toe, right M19.071 Arthritis of joint of lesser toe, left M 19.072 Hallux rigidus, right foot M20.21 Unsteady gait R26.81 Surgical History Surgery Date(Month/Year) knee replacement 2006 colonoscopy Partial - Dental- False teeth knee surgery 11/17/24
--- OUTSIDE RECORDS SUMMARY | 2025-04-24 16:30 | XMS_ITS | Patient Health Record ---
Author Organization [facility] Address [address] [place] [address] Care Team Providers Care Health Lead Name Role Phone Billy Juárez Unavailable [phone] Reason For Referral No Information Plan Of Treatment No Information
== END 2025-04-24 16:30 | disposition home or self-care (01) ==
LOC: HO.HMCC 15:56
PROVIDERS: PCP Nurse Practitioner Family; Visit Provider Nurse Practitioner Family
DX: I10 Essential (primary) hypertension (principal); M85.80 Other specified disorders of bone density and structure, unspecified site; E55.9 Vitamin D deficiency, unspecified

== ENCOUNTER → 2025-04-24 15:55 | Outpatient (BNVA) | payer OTHER, SELFPAY | PROVIDERS: PCP Nurse Practitioner Family; Visit Provider Nurse Practitioner Family | DX: I10 Essential (primary) hypertension (principal); M85.80 Other specified disorders of bone density and structure, unspecified site; E55.9 Vitamin D deficiency, unspecified; Z96.652 Presence of left artificial knee joint | CPT/HCPCS: 96127 ==

== ENCOUNTER 2025-07-25 13:28 | Outpatient (REF) | payer MEDICARE, SELFPAY ==
--- OUTSIDE RECORDS SUMMARY | 2025-07-25 16:20 | XMS_ITS | Data Portability ---
Author Organization [facility], [facility] Address [address] [place] [address] Care Team Providers Care Senior Nurse Manager Name Role Phone ANA MARÍA MELENDEZ Primary Care Provider Assessment Encounter Date Assessment Date Assessment LastModified by Organization Details LastModified Time 12/06/2024 12/06/2024 Assessment: Much improved gait w/o use of AD compared to LV. ROM slowly improving, tight at end range. Plan: Continue PT @ 2x/wk for 8 weeks to decrease pain, increase ROM, optimize mechanics for functional mobility with gait and stairs, and facilitate independence with functional ADL's. [email or web address] Not available 12/06/2024 13:14:14 12/11/2024 12/11/2024 Assessment: Gait continues to improve each week, now w/o AD. demonstrates fair balance w/o, shuffling gait once fatigued. PROM improving each visit. Plan: Continue PT @ 2x/wk to decrease pain, increase ROM, optimize mechanics for functional mobility with gait and stairs, and facilitate independence with functional ADL's. Not available 12/11/2024 12:04:11 12/13/2024 12/13/2024 Assessment: Gait continues to improve each week, now w/o AD. demonstrates fair balance w/o, shuffling gait once fatigued. PROM improving each visit. Plan: Continue PT @ 2x/wk to decrease pain, increase ROM, optimize mechanics for functional mobility with gait and stairs, and facilitate independence with functional ADL's. Not available 12/13/2024 11:04:30 12/14/2024 12/14/2024 I am seeing the patient today under the supervision of Dr. stone was available but who did not see the patient. HISTORY OF PRESENT ILLNESS The patient presents today for a follow-up, now four weeks status post Left total knee arthroplasty. Continues to be happy with the results. No recent trauma. No significant complaints of pain. No neurovascular changes.Continues to progress nicely with physical therapy. ROM 0-110 with Therapy is degrees. PAST MEDICAL/SURGICAL HISTORY Reviewed today, otherwise unchanged per intake sheet. REVIEW OF SYSTEMS Systemic: No fever and no chills. Cardiovascular: No chest pain or discomfort. Pulmonary: No dyspnea. PHYSICAL FINDINGS General Appearance: Well developed. In no acute distress. Musculoskeletal System: Lower Leg: General/bilateral: Calves of both lower legs were not tender on palpation. Neurological: Oriented to time, place, and person. Gait And Stance: A left-sided antalgic gait was observed with assistive device. Psychiatric: Mood was appropriate to the affect. Skin: Skin: Physical examination of the knee reveals the incision to be healing nicely, no eyrthema or drainage, no evidence of infection. ROM is as above. Moderate effusion noted Stable to varus.valgus stress. Extensor mechanism continues to be intact without an extensor lag. Normal sensation bilateral lower extremities Contralateral side shows no warmth, erythema, soft tissue swelling or effusion. TESTS X-rays ordered, obtained and reviewed at [facility] today, three views reveals maintained alignment of the prosthetic components, no fractures or dislocation, excellent interface, patella tracking centrally. ASSESSMENT Progressing nicely four weeks status post Left total knee arthroplasty. PLAN The patient is going to continue total knee precautions. Continue to work on range of motion and strengthening exercises with physical therapy.Continue to monitor for any evidence of infection. Follow-up in 2 weeks for re-evaluation, sooner if there are any complications. Three-view left foot ordered taking reviewed by myself no fractures no deformity. Patient was reassured contusion at this point [email or web address] Not available 12/14/2024 14:54:18 03/08/2025 03/08/2025 History: The patient is approximately 3 months status post a left total knee arthroplasty and presents for routine follow-up per our request. Pain level 0/10. Very happy with results. She continues to have some swelling in her left lower extremity. PMH/PSH/MEDS/ALL/F MH/SOC HX/ROS all reviewed in detail per my medical intake sheet. ROS: The patient denies fevers, chills, neurovascular changes, history of trauma. Exam: Vitals signs as noted. Alert and oriented x3. Appears well and in no acute distress. Extremities: Incision is well-healed. Calves are soft and nontender. No evidence of DVT. 1-2+ left lower extremity edema. Neurovascular status at baseline. Range of motion is 0-120. Ligaments are stable to varus and valgus stresses. No significant effusion. Quad strength is 5/5 X-rays: Radiographs were not obtained today. Assessment: The patient is doing well approximately 3 months s/p TKA. Some residual left lower extremity swelling which is not uncommon at this point. Plan: The patient will continue with a home exercise program for additional strengthening and conditioning. I prescribed her compression socks to help treat the lower extremity edema. Otherwise, the patient will continue with activity as tolerated. The patient was advised to take occasional OTC acetaminophen or OTC NSAIDS for mild residual discomfort if they are not otherwise medically contraindicated. They are encouraged to discuss this with their PCPS. The potential benefits, risks, and side effects were explained at length.Total knee replacement activity precautions were reviewed. The need for antibiotic prophylaxis for dental visits was discussed. The patient will follow-up annually or sooner if there are any problems. [email or web address] Not available 03/23/2025 14:49:47 Plan of Treatment Reminders Order Date Submit Date Provider Last Modified By Organization Details Last Modified Time Details Appointments None record ed. Lab None record ed. Referral None record ed. Procedures None record ed. Surgeries None record ed. Imaging XR, foot, 2 view - rm 313 2v left foot 025 12/15/19 [email or web address] [facility], [address], [facility] [address], [place], [address], 5 06:28:11 Medication Orders None record ed. Patient TargetsNo targets recorded. Patient InstructionsNo instructions recorded. Reason for Referral None Reported. Results Created Date Observation Date Name Description Value Unit Range Abnormal Flag Note LastModifiedBy Organization Detail LastModifiedTime 11/14/19 25 11/13/2024 XR, knee, 4 or more view [email or web address]:/ [email or web address] ?Encry pted=s Hugo YD8dLq bEUv6g %2BXZw aYqtaq 0bqfl% 2Fg9IQ a4ajBk vP9nXo QUaueC m3YtLR FvZlgJ JJ8mAn HZtai3 6n2651 AC0Kqb XuGU6C kKiQtr MwF INTERFACE [facility] [address], [place], [address], 11/13/2024 09:43:24 11/14/19 25 11/13/2024 XR, knee, 4 or more view [email or web address]:/ [email or web address] ?Encry pted=s hAaTro YD8dLq bEUv6g %2BXZw aYqtaq 0bqfl% 2Fg9IQ a4ajBk vP9nXo QUaueC m3YtLR FvZlgJ JJ8mAn HZtai3 2o3788 AC0Kqb XuGU6C kKiQtr MwF INTERFACE [facility] [address] [facility] [address], [place], [address], 11/13/2024 09:43:27 12/01/19 25 11/30/2024 XR, knee, 3 view [email or web address]:/ [email or web address] ?Encry pted=s hAaTro YD8dLq bEUv6g %2BXZw aYqtaq 0bqfl% 2Fg9IQ a4ajBk vP9nXo QUaueC m3YtLR FvZlgJ JJ8[place] HZtai3 7b1181 AC0KqY niEUKO lKiQtr MwF INTERFACE [facility] [address], [place], [address], 11/30/2024 14:54:30 12/01/19 25 11/30/2024 XR, knee, 3 view [email or web address]:/ [email or web address] ?Encry pted=s hAaTro YD8dLq bEUv6g %2BXZw aYqtaq 0bqfl% 2Fg9IQ a4ajBk vP9nXo QUaueC m3YtLR FvZlgJ JJ8mAn HZtai3 3y3966 AC0KqY niEUKO lKiQtr MwF INTERFACE [facility] [address] [facility] [address], [place], [address], 11/30/2024 14:54:32 12/15/19 25 12/14/2024 XR, foot, 2 view [email or web address]:/ [email or web address] ?Encry pted=s hAaTro YD8dLq bEUv6g %2BXZw aYqtaq 0bqfl% 2Fg9IQ a4ajBk vP9nXo QUaueC m3YtLR FvZlgJ JJ8mAn HZtai3 1c3245 AC0KqY 3yCVaS vKiQtr MwF INTERFACE [facility] [address] [facility] [address], [place], [address], 12/14/2024 14:51:15 12/15/19 25 12/14/2024 XR, foot, 2 view http:/ [email or web address] ?Encry pted=s hAaTro YD8dLq bEUv6g %2BXZw aYqtaq 0bqfl% 2Fg9IQ a4ajBk vP9nXo QUaueC m3YtLR FvZlgJ JJ8mAn HZtai3 1e0087 AC0KqY 3yCVaS vKiQtr MwF INTERFACE [facility] [address] [facility] [address], [place], [address], 12/14/2024 14:51:17 Result Notes Documentation Provider Name and Address Organization Details Recorded Time Xr, Foot, 2 View : [email or web address]? Encrypted=dgIuLdsPH8kCpcB Uv6g%5VMKirRhdsu5fccu%2Fg 3ITb6eqBwbV3kXgSUddyPh1Ht PSYwGqwRDS7zPxJPaae06t187 2YC9YxN0sLUjKlKcVebOlS Not Available [facility] 12/14/2024 14:51: 15 Xr, Foot, 2 View : [email or web address] Encrypted=gvVdSkxVC9kCnuK Uv6g%7VFEpbTknjp5qqza%2Fg 4YWh8nfZqfT2eMbPFcrwLj3Ox SMPmCnlQSB4fLfZIddl95n635 0IG8GrY1vIEuDjDsAdwPxN Not Available [facility] 12/14/2024 14:51: 17 Problems Name Problem SNOMED Code Status Onset Date Resolution Date Notes Provider Name and Address Organization Details Recorded Time Osteoarthri tis of knee 485336210 Active 2023 Ren Gorman PA-C [address], [place], [address], [facility] 4 10:56:02 Pain of left knee joint 3199810201378 07 Active 2023 JEAN nunez [facility] 4 15:39:12 Swelling of left lower limb 845467972 Active 2024 JEAN nunez [facility] 5 13:52:55 Problem Notes None recorded. Procedures Surgical History Date Name Laterality Status Provider Name and Address Organization Details Recorded Time 5 38994 Therapeutic Exercise (1:1) completed Jose Senior DPT [address], [place], [address], [facility] 12/13/2024 11:04:30 5 37770: Manual therapy completed Jose Senior DPT [address], [place], [address], [facility] 12/13/2024 11:04:30 5 49563 Therapeutic Exercise (1:1) completed Jose Senior DPT [address], [place], [address], [facility] 12/11/2024 12:02:55 5 65054: Manual therapy completed Jose Senior, DPT [address], [place], [address], [facility] 12/11/2024 12:02:45 5 23359 Therapeutic Exercise (1:1) completed Jose Senior, DPT [address], [place], [address], [facility] 12/06/2024 13:12:06 5 14388: Manual therapy completed Jose Senior, DPT [address], [place], [address], [facility] 12/06/2024 13:12:58 5 04444 Therapeutic Exercise (1:1) completed Jose Senior, DPT [address], [place], [address], [facility] 12/04/2024 12:03:58 5 01169: Manual therapy completed Jose Senior, DPT [address], [place], [address], [facility] 12/04/2024 12:08:32 5 64764 Therapeutic Exercise (1:1) completed Jose Senior, DPT [address], [place], [address], [facility] 11/30/2024 14:00:04 5 53838: Manual therapy completed Jose Senior, DPT [address], [place], [address], [facility] 11/30/2024 14:00:13 5 46769 Therapeutic Exercise (1:1) completed Jose Senior, DPT [address], [place], [address], [facility] 11/28/2024 15:11:05 5 90921: Low complexity PT Eval completed Jose Senior, DPT [address], [place], [address], [facility] 11/28/2024 15:11:07 4 64464 Therapeutic Exercise (1:1) completed Jose Senior, DPT [address], [place], [address], [facility] 05/01/2024 11:40:07 4 05264: Low complexity PT Eval completed Jose Senior, DPT [address], [place], [address], [facility] 05/01/2024 11:40:09 Imaging Results None recorded. Procedure Notes None recorded. Medical Equipment None Reported. Allergies No known drug allergies Medications Name Sig Start Date Stop Date Status Note LastModified by Organization Details LastModified Time celecoxib 200 mg capsule TAKE 1 CAPSULE BY MOUTH ONCE DAILY active Not Available Not Available No t Available amoxicillin 500 mg capsule TAKE FOUR CAPSULES BY MOUTH ONE HOUR BEFORE APPOINTME NT 03/08 completed Not Available Not Available Not Available desonide 0.05 % topical cream APPLY CREAM TOPICALLY TO AFFECTED AREAS ON FACE TWICE DAILY FOR 1 WEEK, BREAK FOR 1 WEEK, REPEAT NEEDED FOR FLARING 03/08 completed Not Available Not Available Not Available prednisone 10 mg tablet TAKE 4 TABLETS BY MOUTH ONCE DAILY FOR 2 DAYS, THEN 3 ONCE DAILY FOR 2 DAYS, THEN 2 ONCE DAILY FOR 2 DAYS, THEN 1 ONCE DAILY FOR 2 DAYS, AND THEN ONE-HALF TABLET ONCE DAILY FOR 2 DAYS. 03/08 completed Not Available Not Available Not Available valacyclovi r 1 gram tablet TAKE 1 TABLET BY MOUTH EVERY 8 HOURS FOR 7 DAYS 03/08 completed Not Available Not Available Not Available prednisone 20 mg tablet TAKE 1 TABLET BY MOUTH ONCE DAILY FOR 3 DAYS 03/08 completed Not Available Not Available Not Available tramadol 50 mg tablet TAKE 1 TABLET BY MOUTH EVERY 6 HOURS NEEDED FOR MILD PAIN 03/08 completed Not Available Not Available Not Available amoxicillin 500 mg tablet TAKE FOUR TABLETS BY MOUTH APPROXIMA TELY ONE HOUR BEFORE DENTAL PROCEDURE 03/08 completed Not Available Not Available Not Available simvastatin 40 mg tablet TAKE 1 TABLET BY MOUTH AT BEDTIME FOR 90 DAYS active Not Available Not Available No t Available levothyroxi ne 75 mcg tablet TAKE 1 TABLET BY MOUTH ONCE DAILY active Not Available Not Available No t Available famciclovir 500 mg tablet TAKE 1 TABLET BY MOUTH EVERY 8 HOURS FOR 7 DAYS 03/08 completed Not Available Not Available Not Available omeprazole 20 mg capsule,del ayed release TAKE 1 CAPSULE BY MOUTH ONCE DAILY active Not Available Not Available No t Available ammonium lactate 12 % topical cream APPLY CREAM TOPICALLY TWICE DAILY FOR 30 DAYS 04/06 completed Not Available Not Available Not Available atenolol 50 mg tablet TAKE 1 TABLET BY MOUTH ONCE DAILY active Not Available Not Available No t Available oxycodone 10 mg tablet TAKE 1/2 (HALF) TO 1 TABLET BY MOUTH EVERY 4 HOURS NEEDED FOR SEVERE PAIN 03/08 completed Not Available Not Available Not Available PreviDent 5000 Booster Plus 1.1 % dental paste USE DIRECTED 03/08 completed Not Available Not Available Not Available Vitals Date Recorded Body height Body mass index (BMI) Body weight Provider Name and Address Organization Details Last Updated DateTime 12/14/2024 147.32 cm 33.2 kg/m2 03053.19 g Gigi Villa [facility] 12/14/2024 14:21:29 Date Recorded Body height Body mass index (BMI) Body weight Provider Name and Address Organization Details Last Updated DateTime 03/08/2025 147.32 cm 33.2 kg/m2 14966.19 g JEAN VALDERRAMA [facility] 03/08/2025 13:39:37 Social History None recorded. Functional Status None recorded. Mental Status None recorded. Family History Nothing Reported. Medical History No medical history recorded. Gynecological HistoryNo gynecological history recorded. Obstetrics History GPAL:G 0 P 0 0 0 0 Past Encounters Encounter ID Performer Location Encounter Start Date Encounter Closed Date Diagnosis/Indication Diagnosis SNOMED-CT Code Diagnosis ICD10 Code Diagnosis IMO Codes Diagnosis Note [id number] GERALDINE Marquez [address] [place] [address] 02/16/2024 10:24:03 03/08/2024 15:30:27 Osteoarthritis of knee 996176717 M17.9 [id number] MD Quyen Monroenie [address] [place] [address] 04/06/2024 14:28:37 04/26/2024 10:30:21 Pain of left knee joint 9628454440 48817 M25.562 Osteoarthr itis of left knee joint 0198253547 02711 M17.12 [id number] Jose Senior DPT [facility] [address] [place] [address] 05/01/2024 09:02:19 05/01/2024 10:37:55 Osteoarthritis of knee 262486296 M17.12 [id number] GERALDINE Mcgrawnijim [address] [place] [address] 05/04/2024 10:03:25 05/30/2024 04:08:42 [id number] Mckenna Colin CNP [facility] [address] [place] [address] 11/13/2024 08:52:10 11/30/2024 04:03:49 [id number] Max Velazco MD [facility] [address] [place] [address] 11/13/2024 09:31:15 12/05/2024 08:18:28 Osteoarthritis of left knee joint 1043252224 90473 M17.12 [id number] Jose Senior DPT [facility] [address] [place] [address] 11/28/2024 12:51:49 11/28/2024 14:17:21 History of left total knee replacement 7274235271 195747 Z96.652 Z47.1 [id number] Jose Senior DPT [facility] [address] [place] [address] 11/30/2024 13:36:54 11/30/2024 15:12:24 History of left total knee replacement 8417506950 247247 Z96.652 Z47.1 [id number] De Rice, PA-C [facility] [address] [place] [address] 11/30/2024 14:25:54 12/15/2024 09:49:32 Pain of left knee region 2888846532 52449 M25.562 [id number] Disorder o f prosthetic joint 149966566 T84.093D [id number] Jose Senior , DPT [facility] [address] [place] [address] 12/04/2024 09:41:39 12/04/2024 10:42:46 History of left total knee replacement 6222991174 741532 Z96.652 Z47.1 [id number] KRISHNA LangstonT [facility] [address] [place] [address] 12/06/2024 09:44:03 12/06/2024 11:05:38 History of left total knee replacement 8023227717 765324 Z96.652 Z47.1 [id number] Jose Senior , DPT [facility] [address] [place] [address] 12/11/2024 09:18:02 12/11/2024 10:21:55 History of left total knee replacement 7818267619 135362 Z96.652 Z47.1 [id number] Jose Senior DPT [facility] [address] [place] [address] 12/13/2024 09:19:55 12/13/2024 10:12:59 History of left total knee replacement 6989772693 891203 Z96.652 Z47.1 [id number] Ren Gorman PA-C [facility] [address] [place] [address] 12/14/2024 14:13:36 12/25/2024 13:46:05 Osteoarthritis of knee 648334438 M17.12 Aftercare 262527502 Z51. 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 06239461 Z47.1 Pain in left foot 847871 8851 72187 M79.672 [id number] MD [facility] [address] [place] [address] 03/08/2025 13:03:52 03/20/2025 08:34:29 Swelling of left lower limb 394723739 M79.89 [id number] History of left total knee replacement 9284303420 300286 Z96.652 [id number] Health Concerns Section Related Observation LastModified by Organization Detai ls LastModified Time None Recorded Concern Status LastModified by Organization Details LastModified Time None Recorded Advance Directives Directive None Recorded Payers Insurance Date Sequence Insurance Name Policy Number Policy You Covered Member ID You Member ID Guarantor Name 04/19/[address] [place] [address] MEDICARE ADVANTAGE PLAN (MEDICARE REPLACEMENT HMO) [id number] Kerri Webber [id number] Kerri Webber Notes Date Note Type Note Provider Name and Address Organization Details Recorded Time 12/06/2024 text/html PT reports 5/10 px coming in today. Comes in today ambulating w/ SPC Jose Senior DPT [address], [place], [address], [facility] 12/06/2024 13:14:35 12/11/2024 text/html Pt reports she has been feeling better, able to walk house hold distances comfortably w/o SPC. Jose Senior DPT [address], [place], [address], [facility] 12/11/2024 12:06:28 12/13/2024 text/html PT reports goal is to return to work day after Easter. Doing well coming in today. Gaining more independence at home. Jose Senior DPT [address], [place], [address], [facility] 12/13/2024 11:05:22 OBGyn Episode No OBEpisode recorded.
== END 2025-07-25 13:29 | disposition home or self-care (01) ==
LOC: HO.MAMMO 13:28
PROVIDERS: PCP Nurse Practitioner Family; Visit Provider Nurse Practitioner Family
DX: Z12.31 Encounter for screening mammogram for malignant neoplasm of breast (principal)
CPT/HCPCS: 77063; 77067

== ENCOUNTER → 2025-07-25 14:00 | Outpatient (BNV) | payer MEDICARE, SELFPAY | PROVIDERS: PCP Nurse Practitioner Family; Visit Provider Internal Medicine | DX: Z12.31 Encounter for screening mammogram for malignant neoplasm of breast (principal) | CPT/HCPCS: 77063; 77067 ==